=== PATIENT | female | born 1955 | race Caucasian/White ===

== ENCOUNTER → 2016-10-06 | Outpatient (CLI) | payer MEDICARE, OTHER, MEDICAID ==
[~2016-10-06] MED LIST: ALBU18HF INH; ALEN70TA5 PO; CANA300T PO; CEFU500T PO; CLOP75TA22 PO; DIPH25CA61 PO; DULA1.5P SC; EZET10TA3 PO; FENO145T13 PO; GABA600T PO; GABA600T2 PO; INSU100I13 SC; LISI5TAB7 PO; MORP15TA PO; OMEG1CAP12 PO; OMEP40CA6 PO; OXYC-229 PO; SITA100T PO; SULF1TAB24 PO; TRIA15CR2 TP; tylenol pm PO
== END | disposition home or self-care (01) ==
LOC: CFH 15:03
PROVIDERS: ATTEND Physician Assistant Surgical
DX: M19.011 Primary osteoarthritis, right shoulder (principal); M75.101 Unspecified rotator cuff tear or rupture of right shoulder, not specified as traumatic

== ENCOUNTER → 2016-10-24 | Outpatient (CLI) | payer MEDICARE, OTHER, MEDICAID | END | disposition home or self-care (01) | LOC: CFH 10:51 | PROVIDERS: ATTEND Physical Medicine & Rehabilitation | DX: M48.07 Spinal stenosis, lumbosacral region (principal); M43.27 Fusion of spine, lumbosacral region; M51.36 Other intervertebral disc degeneration, lumbar region; M25.78 Osteophyte, vertebrae; M54.16 Radiculopathy, lumbar region; G89.29 Other chronic pain; Z98.890 Other specified postprocedural states; Z98.1 Arthrodesis status | CPT/HCPCS: 72110; 72148 ==

== ENCOUNTER → 2016-12-24 | Outpatient (CLI) | payer MEDICARE, OTHER, MEDICAID ==
[~2016-12-24] MED LIST changes: -OMEG1CAP12 PO; +OMEG1CAP23 PO
== END | disposition home or self-care (01) ==
LOC: PETCFH 10:11
PROVIDERS: ATTEND Nurse Practitioner Family
DX: R91.1 Solitary pulmonary nodule (principal); I25.10 Atherosclerotic heart disease of native coronary artery without angina pectoris; D73.89 Other diseases of spleen; Z90.49 Acquired absence of other specified parts of digestive tract
CPT/HCPCS: 78815; A9552

== ENCOUNTER → 2016-12-24 | Outpatient (CLI) | payer MEDICARE, OTHER, MEDICAID | END | disposition home or self-care (01) | LOC: CFH 10:15 | PROVIDERS: ATTEND Nurse Practitioner Family | DX: J44.9 Chronic obstructive pulmonary disease, unspecified (principal) | CPT/HCPCS: 71020 ==

== ENCOUNTER → 2017-01-23 | Outpatient (CLI) | payer MEDICARE, OTHER, MEDICAID ==
[~2017-01-23] MED LIST changes: +ALBUTEROL PO; +BACL20TA PO; -CLOP75TA22 PO; +CLOP75TA52 PO; +EZET10TA18 PO; -EZET10TA3 PO; +FENO160T PO; -OXYC-229 PO; +OXYC-307 PO
[2017-01-23 12:12] LABS: HEMATOCRIT 41.3 % (34.6-47.8); HEMOGLOBIN 13.5 g/dL (11.7-16.4); WHITE BLOOD COUNT 9.4 x10^3/uL (3.4-10)
[2017-01-23 12:24] LABS: BLOOD UREA NITROGEN 23 mg/dL (7-18)
[2017-01-23 12:27] LABS: ASPARTATE AMINO TRANSFERASE 18 U/L (15-37)
== END | disposition home or self-care (01) ==
LOC: STAR 10:57
PROVIDERS: ATTEND Thoracic Surgery (Cardiothoracic Vascular Surgery)
DX: Z01.818 Encounter for other preprocedural examination (principal); J45.909 Unspecified asthma, uncomplicated; E11.9 Type 2 diabetes mellitus without complications; I10 Essential (primary) hypertension; M81.0 Age-related osteoporosis without current pathological fracture
CPT/HCPCS: 36415; 80053; 85025

== ENCOUNTER → 2017-03-18 | Outpatient (CLI) | payer MEDICARE, OTHER, MEDICAID ==
[~2017-03-18] MED LIST changes: +OXYC5CAP2 PO
== END | disposition home or self-care (01) ==
LOC: LAB 11:10
PROVIDERS: ATTEND Internal Medicine
DX: E11.8 Type 2 diabetes mellitus with unspecified complications (principal); Z79.4 Long term (current) use of insulin
CPT/HCPCS: 82043

== ENCOUNTER 2017-04-13 11:25 | Day surgery (SDC) | payer MEDICARE, OTHER, MEDICAID ==
[2017-04-10 11:47] LABS: BLOOD UREA NITROGEN 22 mg/dL (7-18)
[2017-04-10 11:50] LABS: HEMATOCRIT 43.8 % (34.6-47.8); HEMOGLOBIN 14.2 g/dL (11.7-16.4); WHITE BLOOD COUNT 10.3 x10^3/uL (3.4-10)
[~2017-04-13] VITALS: Ht 154.9 cm; Wt 86.0 kg
[2017-04-13 12:07] VITALS: BP 152/82
[2017-04-13] MEDS ORDERED: SODIUM CHLORIDE 0.9% 1,000 ML IV SCH (12:10)
[2017-04-13] MEDS ORDERED: VISIPAQUE 270 MG/ML, 150ML BOTTLE ONE (13:30)
[2017-04-13] MEDS ORDERED: NALOXONE 1 MG/ML, 2ML ONE (15:36)
[2017-04-13] MEDS ORDERED: HEPARIN 1,000 UNITS/ML, 10ML ONE (15:36)
[2017-04-13] MEDS ORDERED: FENTANYL PF 100 MCG/2ML ONE ×2 (15:36)
[2017-04-13] MEDS ORDERED: FLUMAZENIL 0.1 MG/1 ML, 5ML ONE (15:36)
[2017-04-13] MEDS ORDERED: PROTAMINE SULFATE 10 MG/ML, 25ML ONE (15:36)
[2017-04-13] MEDS ORDERED: MIDAZOLAM 1 MG/ML, 5ML ONE (15:36)
[2017-04-13] MEDS ORDERED: NITROGLYCERIN 5 MG/ML, 10ML ONE (15:36)
[2017-04-13] MEDS ORDERED: LIDOCAINE 2%, 20ML ONE (15:44)
[2017-04-13] MEDS ORDERED: CLOPIDOGREL 75 MG TABLET ONE (17:35)
[2017-04-13] MEDS: CLOPIDOGREL 75 MG TABLET PO ONE ×3 (17:40→18:05)
[2017-04-13] MEDS ORDERED: HYDROcodone/APAP 5/325 TABLET ONE (18:13)
[2017-04-13] MEDS ORDERED: HYDROcodone/APAP 5/325 TABLET PO ONE (18:30)
== END 2017-04-13 19:05 | disposition home or self-care (01) ==
LOC: OUT 11:25
PROVIDERS: ATTEND Surgery
DX: I70.213 Atherosclerosis of native arteries of extremities with intermittent claudication, bilateral legs (principal); I10 Essential (primary) hypertension; E11.9 Type 2 diabetes mellitus without complications; E78.5 Hyperlipidemia, unspecified; F17.210 Nicotine dependence, cigarettes, uncomplicated; Z88.8 Allergy status to other drugs, medicaments and biological substances
CPT/HCPCS: 36415; 37220; 75630; 80048; 82962; 85025; 99156; 99157; C1760; C1769; C1894; C2623; J1644; J2250; J3010; J3490; J7030; Q9966; J2720; J2310

== ENCOUNTER → 2017-10-30 | Outpatient (CLI) | payer MEDICARE, MEDICAID, OTHER ==
[~2017-10-30] MED LIST changes: +ACET-458 PO; -FENO145T13 PO; +FENO145T30 PO
== END | disposition home or self-care (01) ==
LOC: CFH 10:29
PROVIDERS: ATTEND Nurse Practitioner
DX: C34.90 Malignant neoplasm of unspecified part of unspecified bronchus or lung (principal); R91.1 Solitary pulmonary nodule; M47.894 Other spondylosis, thoracic region
CPT/HCPCS: 71250

== ENCOUNTER → 2017-11-12 | Outpatient (CLI) | payer MEDICARE, MEDICAID, OTHER | END | disposition home or self-care (01) | LOC: PETCFH 07:36 | PROVIDERS: ATTEND Nurse Practitioner | DX: J84.10 Pulmonary fibrosis, unspecified (principal); R91.8 Other nonspecific abnormal finding of lung field | CPT/HCPCS: 78815; A9552 ==

== ENCOUNTER → 2017-12-08 | Outpatient (CLI) | payer MEDICARE, MEDICAID, OTHER ==
[2017-12-08 11:18] LABS: BASOPHILS % (AUTO) 1 % (0-1); EOSINOPHILS # (AUTO) 0.17 x10^3/uL (0-0.4); EOSINOPHILS % (AUTO) 2 % (1-7); LYMPHOCYTES # (AUTO) 3.59 x10^3/uL (1-3.4); LYMPHOCYTES % (AUTO) 37 % (22-44); MD NO; MEAN CORPUSCULAR HEMOGLOBIN 29.1 pg (27.0-34.8); MEAN CORPUSCULAR HGB CONC 32.8 g/dL (32.4-35.8); MEAN CORPUSCULAR VOLUME 88.8 fL (80-100); MEAN PLATELET VOLUME 9.6 fL (7.4-10.4); MONOCYTES # (AUTO) 0.35 x10^3/uL (0.2-0.8); MONOCYTES % (AUTO) 4 % (2-9); NEUTROPHILS # (AUTO) 5.56 x10^3/uL (1.8-6.8); NEUTROPHILS % (AUTO) 57 % (42-75); PLATELET COUNT 262 x10^3/uL (130-400); RED BLOOD COUNT 4.73 x10^6/uL (3.82-5.3)
[2017-12-08 11:27] LABS: ALANINE AMINOTRANSFERASE 23 U/L (12-78); ALBUMIN 3.7 g/dL (3.4-5.0); ANION GAP 7 mmol/L (5-15); CALCIUM 9.5 mg/dL (8.5-10.1); CHLORIDE 103 mmol/L (98-107); CREATININE 1.12 mg/dL (0.55-1.02)
[2017-12-08 11:29] LABS: ALKALINE PHOSPHATASE 60 U/L (45-117); BILIRUBIN,TOTAL 0.2 mg/dL (0.2-1.0); TOTAL PROTEIN 8.1 g/dL (6.4-8.2)
== END | disposition home or self-care (01) ==
LOC: STAR 10:13
PROVIDERS: ATTEND Thoracic Surgery (Cardiothoracic Vascular Surgery)
DX: Z01.818 Encounter for other preprocedural examination (principal); R94.31 Abnormal electrocardiogram [ECG] [EKG]
CPT/HCPCS: 36415; 80053; 85025; 93005

== ENCOUNTER → 2017-12-09 | Outpatient (CLI) | payer MEDICARE, MEDICAID, OTHER | END | disposition home or self-care (01) | LOC: CVU 12:19 | PROVIDERS: ATTEND Surgery | DX: I65.23 Occlusion and stenosis of bilateral carotid arteries (principal); I10 Essential (primary) hypertension; I73.9 Peripheral vascular disease, unspecified; E11.9 Type 2 diabetes mellitus without complications; E78.5 Hyperlipidemia, unspecified; Z72.0 Tobacco use | CPT/HCPCS: 93880; 93922; 93925 ==

== ENCOUNTER 2017-12-16 10:45 | Inpatient (IN) | payer MEDICARE, OTHER, MEDICAID ==
[~2017-12-16] VITALS: Ht 154.9 cm; Wt 89.4 kg
[~2017-12-16 10:45] MED LIST changes: +BUPIVACAINE/PF-EPI 0.5% 1:200K ONE
[2017-12-16] MEDS ORDERED: LACTATED RINGERS 1,000 ML IV SCH ×2 (11:29→14:07)
[2017-12-16 12:02] VITALS: BP 137/81
[2017-12-16] MEDS ORDERED: INSU100I34 SQ-INSULIN (12:15)
[2017-12-16] MEDS ORDERED: EVOL140P SQ (12:15)
[2017-12-16] MEDS ORDERED: FENTANYL PF 100 MCG/2ML ONE ×4 (12:23→15:12)
[2017-12-16] MEDS ORDERED: PROPOFOL 10 MG/ML, 20ML ONE (12:59)
[2017-12-16] MEDS ORDERED: SUCCINYLCHOLINE 20 MG/ML, 10ML ONE (12:59)
[2017-12-16] MEDS ORDERED: ONDANSETRON 2MG/ML, 2ML ONE (12:59)
[2017-12-16] MEDS ORDERED: CEFAZOLIN 1,000 MG ONE (12:59)
[2017-12-16] MEDS ORDERED: ROCURONIUM 10 MG/ML,10ML ONE (12:59)
[2017-12-16] MEDS ORDERED: HYDROmorphone 2 MG/ML, 1ML ONE (14:19)
[2017-12-16] MEDS: HYDROmorphone 1 MG/ML, 1ML IV PRN ×4 (14:20→15:43)
[2017-12-16] MEDS ORDERED: LORazepam 2 MG/ML, 1ML ONE (14:22)
[2017-12-16] MEDS ORDERED: ACETAMINOPHEN 650 MG SUPP PR PRN (14:30)
[2017-12-16] MEDS ORDERED: morphine SULFATE 10 MG/ML, 1ML IVPush PRN (14:30)
[2017-12-16] MEDS ORDERED: ENALAPRILAT 1.25 MG/ML, 2ML IVPush PRN (14:30)
[2017-12-16] MEDS: FAMOTIDINE 20 MG/2 ML IVPush SCH (14:30)
[2017-12-16] MEDS ORDERED: LORazepam 0.5MG TABLET PO PRN (14:30)
[2017-12-16] MEDS ORDERED: hydrALAzine 20 MG/ML, 1ML IVPush PRN (14:30)
[2017-12-16] MEDS ORDERED: ONDANSETRON 2MG/ML, 2ML IVPush PRN (14:30)
[2017-12-16] MEDS ORDERED: ACETAMINOPHEN 325 MG TABLET PO PRN ×2 (14:30→15:30)
[2017-12-16] MEDS ORDERED: OXYcodone IR 5MG TABLET PO PRN (14:30)
[2017-12-16] MEDS ORDERED: LORazepam 2 MG/ML, 1ML IVPush PRN ×2 (14:30→15:30)
[2017-12-16] MEDS: FENTANYL PF 100 MCG/2ML IV PRN ×2 (15:22→15:34)
[2017-12-16] MEDS ORDERED: KETOROLAC 30 MG/1 ML IV PRN (15:30)
[2017-12-16] MEDS ORDERED: LABETALOL 5MG/ML, 20ML IV PRN (15:30)
[2017-12-16] MEDS ORDERED: ALBUTEROL SULFATE 2.5 MG/3 ML NPPB PRN (15:30)
[2017-12-16] MEDS ORDERED: ONDANSETRON 2MG/ML, 2ML IV PRN (15:30)
[2017-12-16] MEDS ORDERED: FENTANYL PF 100 MCG/2ML IV PRN (15:30)
[2017-12-16] MEDS ORDERED: HYDROmorphone 1 MG/ML, 1ML IV PRN (15:30)
[2017-12-16] MEDS ORDERED: hydrALAzine 20 MG/ML, 1ML IV PRN (15:30)
[2017-12-16] MEDS ORDERED: EPHEDRINE 50 MG/ML, 1ML IVPush PRN (15:30)
[2017-12-16] MEDS ORDERED: HALOPERIDOL 5 MG/ML IV PRN (15:30)
[2017-12-16] MEDS ORDERED: MEPERIDINE/PF 25MG/0.5ML IVPush PRN (15:30)
[2017-12-16] MEDS ORDERED: PROMETHAZINE 25 MG/ML, 1ML IV PRN (15:30)
[2017-12-16] MEDS ORDERED: ALBUTEROL/IPRATROPIUM 2.5MG/0.5MG, 3 ML NPPB PRN (15:30)
[2017-12-16] MEDS ORDERED: ACETAMINOPHEN 650 MG/20.3 ML UDC ONE (15:53)
[2017-12-16] MEDS ORDERED: KETOROLAC 30 MG/1 ML ONE (15:54)
[2017-12-16] MEDS ORDERED: ACETAMINOPHEN 325 MG TABLET ONE (15:54)
[2017-12-16] MEDS: GABAPENTIN 300 MG CAPSULE PO SCH ×2 (16:00→20:41)
[2017-12-16] MEDS: BACLOFEN 10 MG TABLET PO SCH ×2 (16:00→20:41)
[2017-12-16] MEDS ORDERED: INSULIN SINGLE DOSE, ER SQ-INSULIN ONE (16:25)
[2017-12-16] MEDS: INSULIN REGULAR 100 UNITS/ML, 3ML VIAL SQ-INSULIN SCH ×2 (16:47→21:00)
[2017-12-16] MEDS ORDERED: ALBUTEROL SULFATE 2.5MG/0.5ML NPPB PRN (17:30)
[2017-12-16 19:41] VITALS: BP 126/71
[2017-12-16] MEDS: DIPHENHYDRAMINE 25 MG CAPSULE PO SCH (20:41)
[2017-12-16] MEDS: TRIAMCINOLONE CRM 0.025%, 15GM TP SCH (20:42)
[2017-12-16] MEDS ORDERED: EZETIMIBE 10 MG TABLET PO SCH (21:00)
[2017-12-16] MEDS ORDERED: INSULIN GLARGINE 100 UNITS/ML, PEN SQ-INSULIN SCH (21:00)
[2017-12-16 23:54] VITALS: BP 140/68
[2017-12-17] MEDS: LACTATED RINGERS 500 ML IVBOLUS ONE ×2 (02:25→02:30)
[2017-12-17] MEDS: FAMOTIDINE 20 MG/2 ML IVPush SCH (02:25)
[2017-12-17] MEDS ORDERED: HYDROmorphone 2 MG/ML, 1ML ONE (02:47)
[2017-12-17] MEDS: HYDROmorphone 1 MG/ML, 1ML IV PRN (02:51)
[2017-12-17 04:25] VITALS: BP 109/71
[2017-12-17 05:18] LABS: BASOPHILS # (AUTO) 0.09 x10^3/uL (0-0.1); BASOPHILS % (AUTO) 1 % (0-1); EOSINOPHILS # (AUTO) 0.12 x10^3/uL (0-0.4); EOSINOPHILS % (AUTO) 1 % (1-7); LYMPHOCYTES # (AUTO) 4.16 x10^3/uL (1-3.4); LYMPHOCYTES % (AUTO) 32 % (22-44); MD NO; MEAN CORPUSCULAR HGB CONC 32.3 g/dL (32.4-35.8); MEAN CORPUSCULAR VOLUME 89.7 fL (80-100); MONOCYTES # (AUTO) 0.59 x10^3/uL (0.2-0.8); MONOCYTES % (AUTO) 5 % (2-9); NEUTROPHILS % (AUTO) 62 % (42-75); PLATELET COUNT 224 x10^3/uL (130-400); RED BLOOD COUNT 4.28 x10^6/uL (3.82-5.3); RED CELL DISTRIBUTION WIDTH 14.5 % (9.6-15.2)
[2017-12-17 05:32] LABS: ANION GAP 8 mmol/L (5-15); CALCIUM 8.8 mg/dL (8.5-10.1); CHLORIDE 105 mmol/L (98-107); CREATININE 1.08 mg/dL (0.55-1.02)
[2017-12-17] MEDS: INSULIN REGULAR 100 UNITS/ML, 3ML VIAL SQ-INSULIN SCH (07:00)
[2017-12-17 08:13] VITALS: BP 134/78
[2017-12-17 08:16] VITALS: BP 138/79
[2017-12-17] MEDS ORDERED: FENOFIBRATE 145 MG TABLET PO SCH (09:00)
[2017-12-17] MEDS: TRIAMCINOLONE CRM 0.025%, 15GM TP SCH (09:00)
[2017-12-17] MEDS ORDERED: LISINOPRIL 10 MG TABLET PO SCH (09:00)
[2017-12-17] MEDS: DIPHENHYDRAMINE 25 MG CAPSULE PO SCH (09:00)
[2017-12-17] MEDS ORDERED: TEMPLATE NON-FORMULARY MED. (Canagliflozin (Invokana) 300 MG) HOMEMEDPO SCH (09:00)
[2017-12-17] MEDS ORDERED: ENOXAPARIN 40 MG/0.4 ML SQ SCH (09:00)
[2017-12-17] MEDS: BACLOFEN 10 MG TABLET PO SCH (09:53)
[2017-12-17] MEDS: GABAPENTIN 300 MG CAPSULE PO SCH (09:53)
[2017-12-17 11:17] VITALS: BP 125/76
== END 2017-12-17 12:01 | disposition home or self-care (01) | DRG 165 ==
LOC: ORIP 10:45 → 4NOR 17:08 → DCLOUNGE 12-17 11:52
PROVIDERS: ADMIT Thoracic Surgery (Cardiothoracic Vascular Surgery); ATTEND Thoracic Surgery (Cardiothoracic Vascular Surgery)
PROC: 0WP8X0Z Removal of Drainage Device from Chest Wall, External Approach (ICD-10-PCS; 2017-12-16)
PROC: 0BBC4ZZ Excision of Right Upper Lung Lobe, Percutaneous Endoscopic Approach (ICD-10-PCS; principal; 2017-12-16 13:00)
DX: C34.91 Malignant neoplasm of unspecified part of right bronchus or lung (principal); I10 Essential (primary) hypertension; E78.5 Hyperlipidemia, unspecified; J44.9 Chronic obstructive pulmonary disease, unspecified; K21.9 Gastro-esophageal reflux disease without esophagitis; E11.51 Type 2 diabetes mellitus with diabetic peripheral angiopathy without gangrene; Z88.6 Allergy status to analgesic agent; Z88.0 Allergy status to penicillin; Z88.8 Allergy status to other drugs, medicaments and biological substances
CPT/HCPCS: 36415; 71045; 80048; 82962; 85025; 86850; 86900; 88307; 88309; C1729; J0690; J1170; J1650; J1815; J1885; J2405; J2704; J3010; J7120; J0330; Q0163; S0028

== ENCOUNTER → 2018-04-19 | Outpatient (CLI) | payer MEDICARE, OTHER, MEDICAID ==
[~2018-04-19] MED LIST changes: -BUPIVACAINE/PF-EPI 0.5% 1:200K ONE; +EVOL140P SQ; +GADOBUTROL 10 MMOL/10 ML PFS ONE; +INSU100I34 SQ-INSULIN
== END | disposition home or self-care (01) ==
LOC: CFH 14:02
PROVIDERS: ATTEND Physical Medicine & Rehabilitation
DX: R07.89 Other chest pain (principal); G89.3 Neoplasm related pain (acute) (chronic); E11.9 Type 2 diabetes mellitus without complications; M79.2 Neuralgia and neuritis, unspecified; Z90.2 Acquired absence of lung [part of]; Z85.118 Personal history of other malignant neoplasm of bronchus and lung; Z85.3 Personal history of malignant neoplasm of breast
CPT/HCPCS: 71552; 82565; A9585

== ENCOUNTER → 2018-05-28 | Outpatient (CLI) | payer MEDICARE, OTHER, MEDICAID ==
[~2018-05-28] MED LIST changes: -GADOBUTROL 10 MMOL/10 ML PFS ONE
== END | disposition home or self-care (01) ==
LOC: CFH 10:36
PROVIDERS: ATTEND Nurse Practitioner
DX: L92.8 Other granulomatous disorders of the skin and subcutaneous tissue (principal); J95.89 Other postprocedural complications and disorders of respiratory system, not elsewhere classified; I25.10 Atherosclerotic heart disease of native coronary artery without angina pectoris; J98.4 Other disorders of lung; C34.91 Malignant neoplasm of unspecified part of right bronchus or lung; M25.78 Osteophyte, vertebrae; Z90.49 Acquired absence of other specified parts of digestive tract
CPT/HCPCS: 71250

== ENCOUNTER → 2018-06-15 | Outpatient (CLI) | payer MEDICARE, OTHER | END | disposition home or self-care (01) | LOC: CFH 14:31 | PROVIDERS: ATTEND Orthopaedic Surgery | DX: M19.071 Primary osteoarthritis, right ankle and foot (principal); R60.0 Localized edema; G89.29 Other chronic pain ==

== ENCOUNTER → 2018-07-14 | Outpatient (CLI) | payer MEDICARE, OTHER, MEDICAID ==
[~2018-07-14] MED LIST changes: -ALEN70TA5 PO; +ALEN70TA6 PO; -GABA600T2 PO; +GABA600T7 PO
== END | disposition home or self-care (01) ==
LOC: CVU 09:21
PROVIDERS: ATTEND Surgery
DX: I70.203 Unspecified atherosclerosis of native arteries of extremities, bilateral legs (principal); I74.9 Embolism and thrombosis of unspecified artery; I77.1 Stricture of artery; T82.858A Stenosis of other vascular prosthetic devices, implants and grafts, initial encounter; I10 Essential (primary) hypertension; E11.9 Type 2 diabetes mellitus without complications; Z72.0 Tobacco use
CPT/HCPCS: 93922; 93925; 93979

== ENCOUNTER → 2018-08-04 | Outpatient (CLI) | payer MEDICARE, OTHER, MEDICAID ==
[~2018-08-04] MED LIST changes: +REGADENOSON 0.4 MG/5 ML SYRINGE ONE
== END | disposition home or self-care (01) ==
LOC: CFH 12:59
PROVIDERS: ATTEND Internal Medicine Cardiovascular Disease
DX: I08.1 Rheumatic disorders of both mitral and tricuspid valves (principal); I10 Essential (primary) hypertension; F17.200 Nicotine dependence, unspecified, uncomplicated; Z86.73 Personal history of transient ischemic attack (TIA), and cerebral infarction without residual deficits; Z85.118 Personal history of other malignant neoplasm of bronchus and lung
CPT/HCPCS: 78452; 93017; 93306; A9502; J2785

== ENCOUNTER 2018-08-20 09:03 | Day surgery (SDC) | payer MEDICARE, OTHER, MEDICAID ==
[~2018-08-20] VITALS: Ht 154.9 cm; Wt 81.4 kg
[~2018-08-20 09:03] MED LIST changes: -REGADENOSON 0.4 MG/5 ML SYRINGE ONE
[2018-08-20 09:34] VITALS: BP 165/79
[2018-08-20] MEDS ORDERED: DAPA5TAB PO (09:56)
[2018-08-20 10:02] LABS: BASOPHILS # (AUTO) 0.12 x10^3/uL (0-0.1); BASOPHILS % (AUTO) 1 % (0-1); EOSINOPHILS # (AUTO) 0.09 x10^3/uL (0-0.4); EOSINOPHILS % (AUTO) 1 % (1-7); LYMPHOCYTES # (AUTO) 3.35 x10^3/uL (1-3.4); LYMPHOCYTES % (AUTO) 35 % (22-44); MD NO; MEAN CORPUSCULAR HEMOGLOBIN 28.3 pg (27.0-34.8); MEAN CORPUSCULAR HGB CONC 32.5 g/dL (32.4-35.8); MEAN PLATELET VOLUME 9.4 fL (7.4-10.4); MONOCYTES # (AUTO) 0.41 x10^3/uL (0.2-0.8); MONOCYTES % (AUTO) 4 % (2-9); NEUTROPHILS # (AUTO) 5.61 x10^3/uL (1.8-6.8); NEUTROPHILS % (AUTO) 59 % (42-75); PLATELET COUNT 256 x10^3/uL (130-400); RED BLOOD COUNT 4.68 x10^6/uL (3.82-5.3); RED CELL DISTRIBUTION WIDTH 14.3 % (9.6-15.2)
[2018-08-20] MEDS ORDERED: VERAPAMIL 2.5 MG/ML, 2ML ONE (10:10)
[2018-08-20] MEDS ORDERED: NITROGLYCERIN 5 MG/ML, 10ML ONE (10:10)
[2018-08-20] MEDS ORDERED: FENTANYL PF 250 MCG/5ML ONE (10:10)
[2018-08-20] MEDS ORDERED: MIDAZOLAM 1 MG/ML, 5ML ONE ×2 (10:10→11:39)
[2018-08-20] MEDS ORDERED: LIDOCAINE-MPF 1%, 5ML ONE (10:10)
[2018-08-20] MEDS ORDERED: OXYC-307 PO (10:17)
[2018-08-20] MEDS ORDERED: BUPIVACAINE 0.25% ONE (11:13)
[2018-08-20] MEDS ORDERED: OXYcodone/APAP 10/325MG TABLET PO PRN (12:00)
== END 2018-08-20 16:16 | disposition home or self-care (01) ==
LOC: CACL 09:03
PROVIDERS: ATTEND Internal Medicine Cardiovascular Disease
DX: I25.10 Atherosclerotic heart disease of native coronary artery without angina pectoris (principal); F17.210 Nicotine dependence, cigarettes, uncomplicated; E78.2 Mixed hyperlipidemia; I65.22 Occlusion and stenosis of left carotid artery; E11.65 Type 2 diabetes mellitus with hyperglycemia; Z90.710 Acquired absence of both cervix and uterus; Z98.890 Other specified postprocedural states; Z90.49 Acquired absence of other specified parts of digestive tract; Z85.118 Personal history of other malignant neoplasm of bronchus and lung; Z88.6 Allergy status to analgesic agent; Z88.1 Allergy status to other antibiotic agents; Z88.0 Allergy status to penicillin; Z88.8 Allergy status to other drugs, medicaments and biological substances
CPT/HCPCS: 36415; 85025; 93458; 99156; C1769; C1894; J2250; J3010; J3490; Q9967

== ENCOUNTER → 2018-10-08 | Outpatient (CLI) | payer MEDICARE, OTHER, MEDICAID ==
[~2018-10-08] MED LIST changes: +DAPA5TAB PO
== END | disposition home or self-care (01) ==
LOC: STAR 10:42
PROVIDERS: ATTEND Orthopaedic Surgery
DX: Z01.818 Encounter for other preprocedural examination (principal); M19.041 Primary osteoarthritis, right hand
CPT/HCPCS: 36415; 80053; 93005

== ENCOUNTER 2018-10-19 05:35 | Day surgery (SDC) | payer MEDICARE, OTHER, MEDICAID ==
[2018-10-08 12:24] VITALS: BP 131/77
[2018-10-08 12:34] LABS: CHLORIDE 107 mmol/L (98-107)
[2018-10-08 12:41] LABS: ALANINE AMINOTRANSFERASE 17 U/L (12-78); ALBUMIN 4.1 g/dL (3.4-5.0); ALKALINE PHOSPHATASE 62 U/L (45-117); ANION GAP 8 mmol/L (5-15); BILIRUBIN,TOTAL 0.2 mg/dL (0.2-1.0); CALCIUM 9.8 mg/dL (8.5-10.1); CREATININE 0.88 mg/dL (0.55-1.02); TOTAL PROTEIN 8.3 g/dL (6.4-8.2)
[~2018-10-19] VITALS: Ht 154.9 cm; Wt 82.4 kg
[2018-10-19] MEDS ORDERED: LACTATED RINGERS 1,000 ML IV SCH (06:05)
[2018-10-19 06:09] VITALS: BP 131/77
[2018-10-19] MEDS ORDERED: MIDAZOLAM 1 MG/ML, 2ML ONE (06:39)
[2018-10-19] MEDS ORDERED: FENTANYL PF 100 MCG/2ML ONE ×2 (06:39→11:00)
[2018-10-19] MEDS ORDERED: ACETAMINOPHEN 500 MG TABLET ONE ×3 (07:07)
[2018-10-19] MEDS ORDERED: GABAPENTIN 300 MG CAPSULE ONE ×2 (07:07)
[2018-10-19] MEDS ORDERED: DEXAMETHASONE 4 MG/ML, 1ML ONE (07:10)
[2018-10-19] MEDS ORDERED: ONDANSETRON 2MG/ML, 2ML ONE ×2 (07:10→12:04)
[2018-10-19] MEDS ORDERED: CEFAZOLIN 1,000 MG ONE (07:10)
[2018-10-19] MEDS ORDERED: PROPOFOL 10 MG/ML, 20ML ONE (07:10)
[2018-10-19] MEDS ORDERED: ROCURONIUM 10MG/ML,5ML ONE (07:10)
[2018-10-19] MEDS ORDERED: FENTANYL PF 250 MCG/5ML ONE (07:23)
[2018-10-19] MEDS ORDERED: EPINEPHRINE 1 MG/ML, 1ML ONE (07:23)
[2018-10-19] MEDS ORDERED: ALBUTEROL SULFATE 2.5 MG/3 ML NPPB PRN (07:30)
[2018-10-19] MEDS ORDERED: MEPERIDINE/PF 25MG/0.5ML IVPush PRN (07:30)
[2018-10-19] MEDS ORDERED: ACETAMINOPHEN 325 MG TABLET PO PRN (07:30)
[2018-10-19] MEDS ORDERED: hydrALAzine 20 MG/ML, 1ML IV PRN (07:30)
[2018-10-19] MEDS ORDERED: LABETALOL 5MG/ML, 20ML IV PRN (07:30)
[2018-10-19] MEDS ORDERED: DIAZEPAM 5 MG/ML, 2ML IVPush PRN (07:30)
[2018-10-19] MEDS ORDERED: PROMETHAZINE 25 MG/ML, 1ML IV PRN (07:30)
[2018-10-19] MEDS: FENTANYL PF 100 MCG/2ML IV PRN ×3 (08:48→09:18)
[2018-10-19] MEDS: HYDROmorphone 2 MG/ML, 1ML IVPush PRN ×6 (08:52→09:55)
[2018-10-19] MEDS ORDERED: hydrALAzine 20 MG/ML, 1ML ONE (08:58)
[2018-10-19] MEDS ORDERED: HYDROmorphone 2 MG/ML, 1ML ONE ×2 (09:52→11:00)
[2018-10-19] MEDS ORDERED: OXYcodone/APAP 5/325MG TABLET ONE (12:04)
== END 2018-10-19 13:30 | disposition home or self-care (01) ==
LOC: OUT 05:35
PROVIDERS: ATTEND Orthopaedic Surgery
DX: S43.431A Superior glenoid labrum lesion of right shoulder, initial encounter (principal); M75.111 Incomplete rotator cuff tear or rupture of right shoulder, not specified as traumatic; M65.4 Radial styloid tenosynovitis [de Quervain]; M65.811 Other synovitis and tenosynovitis, right shoulder; M75.41 Impingement syndrome of right shoulder; M75.51 Bursitis of right shoulder; M19.011 Primary osteoarthritis, right shoulder; E11.9 Type 2 diabetes mellitus without complications; I10 Essential (primary) hypertension; I25.10 Atherosclerotic heart disease of native coronary artery without angina pectoris; E78.5 Hyperlipidemia, unspecified; J45.909 Unspecified asthma, uncomplicated; X58.XXXA Exposure to other specified factors, initial encounter; Y93.89 Activity, other specified; Y92.89 Other specified places as the place of occurrence of the external cause; Y99.8 Other external cause status; Z90.710 Acquired absence of both cervix and uterus; Z79.84 Long term (current) use of oral hypoglycemic drugs; Z90.49 Acquired absence of other specified parts of digestive tract; Z98.890 Other specified postprocedural states; Z88.8 Allergy status to other drugs, medicaments and biological substances; Z88.6 Allergy status to analgesic agent; Z88.1 Allergy status to other antibiotic agents; Z88.5 Allergy status to narcotic agent; Z88.0 Allergy status to penicillin
CPT/HCPCS: 25000; 29823; 29824; 29826; 82962; J0171; J0360; J0690; J1100; J1170; J2250; J2405; J2704; J3010; J7120; 36415; 80053

== ENCOUNTER 2018-12-09 09:29 | Outpatient (CLI) | payer MEDICARE, OTHER, MEDICAID | END 2018-12-09 23:59 | disposition home or self-care (01) | LOC: CFH 09:29 | PROVIDERS: ATTEND Nurse Practitioner | DX: Z12.2 Encounter for screening for malignant neoplasm of respiratory organs (principal); I25.10 Atherosclerotic heart disease of native coronary artery without angina pectoris; F17.210 Nicotine dependence, cigarettes, uncomplicated; Z98.890 Other specified postprocedural states | CPT/HCPCS: G0297 ==

== ENCOUNTER 2019-03-12 23:05 | Inpatient (IN) | payer MEDICARE, OTHER, MEDICAID ==
[~2019-03-12] VITALS: Ht 154.9 cm; Wt 85.1 kg
[~2019-03-12 23:05] MED LIST changes: -EZET10TA18 PO; +EZET10TA70 PO
[2019-03-13 00:42] LABS: BASOPHILS # (AUTO) 0.07 x10^3/uL (0-0.1); BASOPHILS % (AUTO) 1 % (0-1); EOSINOPHILS # (AUTO) 0.21 x10^3/uL (0-0.4); EOSINOPHILS % (AUTO) 2 % (1-7); LYMPHOCYTES # (AUTO) 4.11 x10^3/uL (1-3.4); LYMPHOCYTES % (AUTO) 41 % (22-44); MD NO; MEAN CORPUSCULAR HEMOGLOBIN 29.8 pg (27.0-34.8); MEAN CORPUSCULAR HGB CONC 32.9 g/dL (32.4-35.8); MEAN CORPUSCULAR VOLUME 90.7 fL (80-100); MEAN PLATELET VOLUME 10.3 fL (7.4-10.4); MONOCYTES # (AUTO) 0.41 x10^3/uL (0.2-0.8); MONOCYTES % (AUTO) 4 % (2-9); NEUTROPHILS # (AUTO) 5.34 x10^3/uL (1.8-6.8); NEUTROPHILS % (AUTO) 53 % (42-75); PLATELET COUNT 290 x10^3/uL (130-400); RED BLOOD COUNT 4.39 x10^6/uL (3.82-5.3)
[2019-03-13 00:56] LABS: ALANINE AMINOTRANSFERASE 20 U/L (12-78); ALBUMIN 3.5 g/dL (3.4-5.0); ANION GAP 9 mmol/L (5-15); CHLORIDE 105 mmol/L (98-107); CREATININE 0.92 mg/dL (0.55-1.02)
[2019-03-13 00:59] LABS: ALKALINE PHOSPHATASE 95 U/L (45-117); BILIRUBIN,TOTAL 0.3 mg/dL (0.2-1.0)
[2019-03-13] MEDS ORDERED: SODIUM CHLORIDE 0.9% 1,000ML IVBOLUS ONE (02:00)
[2019-03-13] MEDS ORDERED: CEFTRIAXONE PMX 1GM/50ML 50 ML ONE (02:46)
[2019-03-13] MEDS ORDERED: VANCOMYCIN PER PHARMACY MC ONE (03:00)
[2019-03-13] MEDS ORDERED: CEFTRIAXONE PMX 1GM/50ML 50 ML IVPB ONE (03:00)
[2019-03-13] MEDS ORDERED: ACETAMINOPHEN 325 MG TABLET PO PRN (03:00)
[2019-03-13] MEDS ORDERED: VANCOMYCIN 1,600 MG in SODIUM CHLORIDE 0.9% 250 ML IV ONE (03:00)
[2019-03-13] MEDS ORDERED: ONDANSETRON 2MG/ML, 2ML IVPush PRN (03:00)
[2019-03-13 04:25] VITALS: BP 137/77
[2019-03-13] MEDS ORDERED: OMNIPAQUE 350 MG/ML, 100ML BOTTLE ONE (05:04)
[2019-03-13] MEDS: SODIUM CHLORIDE 0.9% 1,000 ML IV SCH ×3 (05:40→22:34)
[2019-03-13] MEDS: OXYcodone/APAP 5/325MG TABLET PO PRN ×4 (05:40→21:43)
[2019-03-13] MEDS: INSULIN LISPRO 100 UNITS/ML, PEN SQ-INSULIN SCH ×4 (07:00→21:45)
[2019-03-13] MEDS: CLOPIDOGREL 75 MG TABLET PO SCH (07:57)
[2019-03-13] MEDS: GABAPENTIN 300 MG CAPSULE PO SCH ×3 (07:57→21:42)
[2019-03-13 08:00] VITALS: BP 102/65
[2019-03-13] MEDS: FENOFIBRATE 145 MG TABLET PO SCH (08:00)
[2019-03-13 10:23] VITALS: BP 102/65
[2019-03-13] MEDS: CLINDAMYCIN PMX 600MG/50ML 50 ML IV SCH ×3 (10:27→22:33)
[2019-03-13] MEDS: ENOXAPARIN 40 MG/0.4 ML SQ SCH (10:37)
[2019-03-13] MEDS: NYSTATIN TOPICAL POWDER 15GM TP SCH ×2 (14:32→22:05)
[2019-03-13 15:10] VITALS: BP 125/70
[2019-03-13] MEDS ORDERED: ALBUTEROL SULFATE 2.5 MG/3 ML HHN PRN (16:30)
[2019-03-13] MEDS: BACLOFEN 10 MG TABLET PO SCH ×2 (16:44→21:41)
[2019-03-13 19:13] VITALS: BP 152/85
[2019-03-13] MEDS ORDERED: INSULIN GLARGINE 100 UNITS/ML, PEN SQ-INSULIN SCH (21:00)
[2019-03-13] MEDS: LISINOPRIL 10 MG TABLET PO SCH (21:42)
[2019-03-13] MEDS: BASAGLAR SQ SCH (22:05)
[2019-03-14 02:56] VITALS: BP 124/51
[2019-03-14] MEDS: CLINDAMYCIN PMX 600MG/50ML 50 ML IV SCH ×4 (04:36→22:25)
[2019-03-14 05:05] LABS: ANION GAP 8 mmol/L (5-15); BASOPHILS # (AUTO) 0.07 x10^3/uL (0-0.1); BASOPHILS % (AUTO) 1 % (0-1); CALCIUM 8.4 mg/dL (8.5-10.1); CHLORIDE 109 mmol/L (98-107); CREATININE 0.74 mg/dL (0.55-1.02); EOSINOPHILS # (AUTO) 0.13 x10^3/uL (0-0.4); EOSINOPHILS % (AUTO) 3 % (1-7); LYMPHOCYTES # (AUTO) 2.35 x10^3/uL (1-3.4); LYMPHOCYTES % (AUTO) 45 % (22-44); MD NO; MEAN CORPUSCULAR HEMOGLOBIN 29.5 pg (27.0-34.8); MEAN CORPUSCULAR HGB CONC 32.8 g/dL (32.4-35.8); MEAN CORPUSCULAR VOLUME 90.1 fL (80-100); MEAN PLATELET VOLUME 9.8 fL (7.4-10.4); MONOCYTES # (AUTO) 0.18 x10^3/uL (0.2-0.8); MONOCYTES % (AUTO) 3 % (2-9); NEUTROPHILS # (AUTO) 2.49 x10^3/uL (1.8-6.8); NEUTROPHILS % (AUTO) 48 % (42-75); PLATELET COUNT 215 x10^3/uL (130-400); RED BLOOD COUNT 3.94 x10^6/uL (3.82-5.3); RED CELL DISTRIBUTION WIDTH 14.2 % (9.6-15.2)
[2019-03-14] MEDS: BACLOFEN 10 MG TABLET PO SCH ×4 (06:00→21:54)
[2019-03-14 07:38] VITALS: BP 144/81
[2019-03-14] MEDS: ENOXAPARIN 40 MG/0.4 ML SQ SCH (08:51)
[2019-03-14] MEDS: GABAPENTIN 300 MG CAPSULE PO SCH ×3 (08:51→21:56)
[2019-03-14] MEDS: INSULIN LISPRO 100 UNITS/ML, PEN SQ-INSULIN SCH ×4 (08:51→21:00)
[2019-03-14] MEDS: CLOPIDOGREL 75 MG TABLET PO SCH (08:52)
[2019-03-14] MEDS: FENOFIBRATE 145 MG TABLET PO SCH (08:52)
[2019-03-14] MEDS: NYSTATIN TOPICAL POWDER 15GM TP SCH ×2 (08:52→21:58)
[2019-03-14] MEDS: SODIUM CHLORIDE 0.9% 1,000 ML IV SCH ×2 (08:53→16:31)
[2019-03-14] MEDS: (Dapagliflozin Propanediol (Farxiga) 5 MG) HOMEMEDPO SCH (08:53)
[2019-03-14] MEDS: OXYcodone/APAP 5/325MG TABLET PO PRN ×3 (09:03→21:54)
[2019-03-14] MEDS ORDERED: MORPHINE SULFATE 4 MG/ML, 1ML IVPush ONE (09:30)
[2019-03-14 14:30] VITALS: BP 121/62
[2019-03-14 19:52] VITALS: BP 155/75
[2019-03-14] MEDS: LISINOPRIL 10 MG TABLET PO SCH (21:55)
[2019-03-14] MEDS: BASAGLAR SQ SCH (21:57)
[2019-03-15] MEDS: SODIUM CHLORIDE 0.9% 1,000 ML IV SCH ×3 (01:32→21:25)
[2019-03-15 01:51] VITALS: BP 101/64
[2019-03-15] MEDS: CLINDAMYCIN PMX 600MG/50ML 50 ML IV SCH ×4 (04:29→23:27)
[2019-03-15] MEDS: BACLOFEN 10 MG TABLET PO SCH ×4 (06:00→21:00)
[2019-03-15 07:59] VITALS: BP 131/74
[2019-03-15] MEDS: INSULIN LISPRO 100 UNITS/ML, PEN SQ-INSULIN SCH ×4 (08:13→21:00)
[2019-03-15] MEDS: (Dapagliflozin Propanediol (Farxiga) 5 MG) HOMEMEDPO SCH (08:13)
[2019-03-15] MEDS: GABAPENTIN 300 MG CAPSULE PO SCH ×3 (08:14→22:10)
[2019-03-15] MEDS: CLOPIDOGREL 75 MG TABLET PO SCH (08:14)
[2019-03-15] MEDS: OXYcodone/APAP 5/325MG TABLET PO PRN ×3 (08:14→22:09)
[2019-03-15] MEDS: FENOFIBRATE 145 MG TABLET PO SCH (08:18)
[2019-03-15] MEDS: NYSTATIN TOPICAL POWDER 15GM TP SCH ×2 (09:00→22:13)
[2019-03-15] MEDS: ENOXAPARIN 40 MG/0.4 ML SQ SCH (10:33)
[2019-03-15] MEDS: ONDANSETRON 2MG/ML, 2ML IVPush PRN (10:33)
[2019-03-15 13:44] VITALS: BP 127/60
[2019-03-15 19:10] VITALS: BP 135/72
[2019-03-15] MEDS: BASAGLAR SQ SCH (21:00)
[2019-03-15] MEDS: LISINOPRIL 10 MG TABLET PO SCH (22:10)
[2019-03-16 01:57] VITALS: BP 128/70
[2019-03-16] MEDS: CLINDAMYCIN PMX 600MG/50ML 50 ML IV SCH ×3 (04:59→18:39)
[2019-03-16] MEDS: BACLOFEN 10 MG TABLET PO SCH ×4 (06:00→22:02)
[2019-03-16] MEDS: SODIUM CHLORIDE 0.9% 1,000 ML IV SCH ×2 (06:30→15:28)
[2019-03-16 08:00] VITALS: BP 137/75
[2019-03-16] MEDS: FENOFIBRATE 145 MG TABLET PO SCH (09:00)
[2019-03-16] MEDS: (Dapagliflozin Propanediol (Farxiga) 5 MG) HOMEMEDPO SCH (09:00)
[2019-03-16] MEDS: INSULIN LISPRO 100 UNITS/ML, PEN SQ-INSULIN SCH ×4 (09:04→19:59)
[2019-03-16] MEDS: CLOPIDOGREL 75 MG TABLET PO SCH (09:05)
[2019-03-16] MEDS: NYSTATIN TOPICAL POWDER 15GM TP SCH ×2 (09:05→22:07)
[2019-03-16] MEDS: ENOXAPARIN 40 MG/0.4 ML SQ SCH (09:05)
[2019-03-16] MEDS: GABAPENTIN 300 MG CAPSULE PO SCH ×3 (09:05→22:02)
[2019-03-16] MEDS: OXYcodone/APAP 5/325MG TABLET PO PRN ×3 (09:27→22:08)
[2019-03-16] MEDS: ONDANSETRON 2MG/ML, 2ML IVPush PRN (10:25)
[2019-03-16 15:20] VITALS: BP 125/55
[2019-03-16 19:23] VITALS: BP 163/80
[2019-03-16] MEDS: BASAGLAR SQ SCH (21:00)
[2019-03-16] MEDS: LISINOPRIL 10 MG TABLET PO SCH (22:02)
[2019-03-17] MEDS: CLINDAMYCIN PMX 600MG/50ML 50 ML IV SCH ×3 (00:36→13:14)
[2019-03-17] MEDS: SODIUM CHLORIDE 0.9% 1,000 ML IV SCH ×2 (00:36→10:08)
[2019-03-17 01:09] VITALS: BP 143/68
[2019-03-17] MEDS: INSULIN LISPRO 100 UNITS/ML, PEN SQ-INSULIN SCH ×3 (07:00→15:42)
[2019-03-17 07:07] VITALS: BP 160/81
[2019-03-17 07:32] LABS: ANION GAP 8 mmol/L (5-15); CALCIUM 8.9 mg/dL (8.5-10.1); CHLORIDE 109 mmol/L (98-107); CREATININE 0.66 mg/dL (0.55-1.02)
[2019-03-17] MEDS: FENOFIBRATE 145 MG TABLET PO SCH (07:46)
[2019-03-17] MEDS: (Dapagliflozin Propanediol (Farxiga) 5 MG) HOMEMEDPO SCH (07:53)
[2019-03-17] MEDS: NYSTATIN TOPICAL POWDER 15GM TP SCH (07:53)
[2019-03-17] MEDS: CLOPIDOGREL 75 MG TABLET PO SCH (07:54)
[2019-03-17] MEDS: ENOXAPARIN 40 MG/0.4 ML SQ SCH (07:54)
[2019-03-17] MEDS: GABAPENTIN 300 MG CAPSULE PO SCH ×2 (07:54→16:00)
[2019-03-17] MEDS: OXYcodone/APAP 5/325MG TABLET PO PRN ×2 (07:55→15:47)
[2019-03-17] MEDS: ONDANSETRON 2MG/ML, 2ML IVPush PRN (10:07)
[2019-03-17] MEDS: BACLOFEN 10 MG TABLET PO SCH ×3 (10:08→16:00)
[2019-03-17 12:17] VITALS: BP 138/71
[2019-03-17] MEDS ORDERED: INSU100I34 SQ-INSULIN (15:17)
[2019-03-17] MEDS ORDERED: LACT1CAP35 PO (15:17)
[2019-03-17] MEDS ORDERED: NYST15PO2 TP (15:17)
[2019-03-17] MEDS ORDERED: CLIN300C8 PO (16:28)
== END 2019-03-17 18:24 | disposition home health service (06) | DRG 901 ==
LOC: ED 03-13 02:41 → EDIP 03-13 02:46 → 3N 03-13 04:10
PROVIDERS: ADMIT Internal Medicine; ATTEND Family Medicine
PROC: 0JBM0ZZ Excision of Left Upper Leg Subcutaneous Tissue and Fascia, Open Approach (ICD-10-PCS; principal; 2019-03-14)
DX: T81.31XA Disruption of external operation (surgical) wound, not elsewhere classified, initial encounter (principal); A41.9 Sepsis, unspecified organism; R65.20 Severe sepsis without septic shock; L03.314 Cellulitis of groin; L03.311 Cellulitis of abdominal wall; L03.116 Cellulitis of left lower limb; B37.2 Candidiasis of skin and nail; E11.51 Type 2 diabetes mellitus with diabetic peripheral angiopathy without gangrene; E11.65 Type 2 diabetes mellitus with hyperglycemia; E78.5 Hyperlipidemia, unspecified; F17.210 Nicotine dependence, cigarettes, uncomplicated; I10 Essential (primary) hypertension; I25.10 Atherosclerotic heart disease of native coronary artery without angina pectoris; J44.9 Chronic obstructive pulmonary disease, unspecified; K21.9 Gastro-esophageal reflux disease without esophagitis; K74.60 Unspecified cirrhosis of liver; E11.40 Type 2 diabetes mellitus with diabetic neuropathy, unspecified; M81.0 Age-related osteoporosis without current pathological fracture; N20.0 Calculus of kidney; Y83.8 Other surgical procedures as the cause of abnormal reaction of the patient, or of later complication, without mention of misadventure at the time of the procedure; Y92.89 Other specified places as the place of occurrence of the external cause; Z79.02 Long term (current) use of antithrombotics/antiplatelets; Z79.4 Long term (current) use of insulin; Z82.49 Family history of ischemic heart disease and other diseases of the circulatory system; Z90.710 Acquired absence of both cervix and uterus
CPT/HCPCS: 36415; 74174; 80048; 80053; 82962; 83605; 84145; 85025; 87040; 96361; 96365; G0378; J0696; J1650; J2405; J3370; Q9967; J1815; J2270; J7030; J7050

== ENCOUNTER → 2019-03-25 | Outpatient (CLI) | payer MEDICARE, OTHER, MEDICAID ==
[~2019-03-25] MED LIST changes: +CLIN300C8 PO; +LACT1CAP35 PO; +NYST15PO2 TP
== END | disposition home or self-care (01) ==
LOC: WOUND 09:59
PROVIDERS: ATTEND Family Medicine
DX: T81.31XA Disruption of external operation (surgical) wound, not elsewhere classified, initial encounter (principal); E66.01 Morbid (severe) obesity due to excess calories; I10 Essential (primary) hypertension; E11.51 Type 2 diabetes mellitus with diabetic peripheral angiopathy without gangrene; F17.210 Nicotine dependence, cigarettes, uncomplicated; Z90.710 Acquired absence of both cervix and uterus; Z68.32 Body mass index [BMI] 32.0-32.9, adult; Y83.8 Other surgical procedures as the cause of abnormal reaction of the patient, or of later complication, without mention of misadventure at the time of the procedure; Y92.89 Other specified places as the place of occurrence of the external cause
CPT/HCPCS: 97597; G0463

== ENCOUNTER → 2019-04-01 | Outpatient (CLI) | payer MEDICARE, OTHER, MEDICAID ==
[~2019-04-01] MED LIST changes: +OMEP40CA42 PO; -OMEP40CA6 PO
== END | disposition home or self-care (01) ==
LOC: WOUND 09:56
PROVIDERS: ATTEND Internal Medicine Cardiovascular Disease
DX: T81.31XD Disruption of external operation (surgical) wound, not elsewhere classified, subsequent encounter (principal); E66.01 Morbid (severe) obesity due to excess calories; I10 Essential (primary) hypertension; E11.51 Type 2 diabetes mellitus with diabetic peripheral angiopathy without gangrene; F17.210 Nicotine dependence, cigarettes, uncomplicated; Z90.710 Acquired absence of both cervix and uterus; Z68.32 Body mass index [BMI] 32.0-32.9, adult; Y83.8 Other surgical procedures as the cause of abnormal reaction of the patient, or of later complication, without mention of misadventure at the time of the procedure
CPT/HCPCS: G0463

== ENCOUNTER 2019-04-06 10:07 | Emergency (ER) | payer MEDICARE, OTHER ==
[~2019-04-06] VITALS: Ht 154.9 cm; Wt 84.0 kg
--- NOTE | 2019-04-06 11:01 | NUR ---
JOLEEN RESTING IN BED. AWAITING DOCTOR.
[2019-04-06] MEDS ORDERED: NEOSPORIN OINT. PKT 1 PACKET ONE (11:37)
--- NOTE | 2019-04-06 11:55 | NUR ---
WOUND DRESSING CHANGED. Addendum: 04/06/19 at 1156 by JIMY FOUND LEFT PEDAL PULSE WITH DOPPLER. ALSO ABLE TO PALPATE A WEAK LEFT PEDAL PULSE
[2019-04-06 12:14] LABS: BASOPHILS # (AUTO) 0.24 x10^3/uL (0-0.1); BASOPHILS % (AUTO) 2 % (0-1); EOSINOPHILS # (AUTO) 0.16 x10^3/uL (0-0.4); EOSINOPHILS % (AUTO) 2 % (1-7); LYMPHOCYTES # (AUTO) 4.06 x10^3/uL (1-3.4); LYMPHOCYTES % (AUTO) 39 % (22-44); MD NO; MEAN CORPUSCULAR HEMOGLOBIN 29.3 pg (27.0-34.8); MEAN CORPUSCULAR HGB CONC 32.5 g/dL (32.4-35.8); MEAN CORPUSCULAR VOLUME 90.2 fL (80-100); MEAN PLATELET VOLUME 9.5 fL (7.4-10.4); MONOCYTES # (AUTO) 0.38 x10^3/uL (0.2-0.8); MONOCYTES % (AUTO) 4 % (2-9); NEUTROPHILS # (AUTO) 5.63 x10^3/uL (1.8-6.8); NEUTROPHILS % (AUTO) 54 % (42-75); PLATELET COUNT 257 x10^3/uL (130-400); RED BLOOD COUNT 4.57 x10^6/uL (3.82-5.3); RED CELL DISTRIBUTION WIDTH 14.5 % (9.6-15.2)
[2019-04-06 12:24] LABS: ALBUMIN 3.8 g/dL (3.4-5.0); ANION GAP 6 mmol/L (5-15); CALCIUM 9.5 mg/dL (8.5-10.1); CHLORIDE 106 mmol/L (98-107); CREATININE 0.95 mg/dL (0.55-1.02)
--- NOTE | 2019-04-06 12:33 | NUR ---
PAITENT RESTING IN BED. WATCHING TV. AWAITING DOCTORS DISPO
[2019-04-06 13:16] VITALS: BP 128/69
--- NOTE | 2019-04-06 13:16 | NUR ---
JOLEEN SPEAKING WITH PA ABOUT COURSE OF TREATMENT. GOING TO DISCHARGE
== END 2019-04-06 13:32 | disposition home or self-care (01) ==
LOC: ED 13:21
DX: T81.89XA Other complications of procedures, not elsewhere classified, initial encounter (principal); E78.00 Pure hypercholesterolemia, unspecified; E11.65 Type 2 diabetes mellitus with hyperglycemia; K21.9 Gastro-esophageal reflux disease without esophagitis; I10 Essential (primary) hypertension; I25.10 Atherosclerotic heart disease of native coronary artery without angina pectoris; J44.9 Chronic obstructive pulmonary disease, unspecified; Z90.89 Acquired absence of other organs; Z90.49 Acquired absence of other specified parts of digestive tract; Z90.710 Acquired absence of both cervix and uterus; Z87.891 Personal history of nicotine dependence
CPT/HCPCS: 36415; 80048; 82040; 85025; 99284

== ENCOUNTER → 2019-04-15 | Outpatient (CLI) | payer MEDICARE, OTHER, MEDICAID | END | disposition home or self-care (01) | LOC: WOUND 09:00 | PROVIDERS: ATTEND Family Medicine | DX: T81.31XD Disruption of external operation (surgical) wound, not elsewhere classified, subsequent encounter (principal); E66.01 Morbid (severe) obesity due to excess calories; I10 Essential (primary) hypertension; E11.51 Type 2 diabetes mellitus with diabetic peripheral angiopathy without gangrene; I25.10 Atherosclerotic heart disease of native coronary artery without angina pectoris; J44.9 Chronic obstructive pulmonary disease, unspecified; K21.9 Gastro-esophageal reflux disease without esophagitis; E78.00 Pure hypercholesterolemia, unspecified; M81.0 Age-related osteoporosis without current pathological fracture; E78.5 Hyperlipidemia, unspecified; G89.29 Other chronic pain; E11.40 Type 2 diabetes mellitus with diabetic neuropathy, unspecified; F17.210 Nicotine dependence, cigarettes, uncomplicated; Z79.02 Long term (current) use of antithrombotics/antiplatelets; Z79.4 Long term (current) use of insulin; Z79.01 Long term (current) use of anticoagulants; Z90.49 Acquired absence of other specified parts of digestive tract; Z90.710 Acquired absence of both cervix and uterus; Z89.422 Acquired absence of other left toe(s); Z86.73 Personal history of transient ischemic attack (TIA), and cerebral infarction without residual deficits; Z88.6 Allergy status to analgesic agent; Z91.012 Allergy to eggs; Z88.5 Allergy status to narcotic agent; Z88.0 Allergy status to penicillin; Z88.8 Allergy status to other drugs, medicaments and biological substances; Z91.018 Allergy to other foods; Y83.8 Other surgical procedures as the cause of abnormal reaction of the patient, or of later complication, without mention of misadventure at the time of the procedure | CPT/HCPCS: 97597 ==

== ENCOUNTER → 2019-04-20 | Outpatient (CLI) | payer MEDICARE, OTHER, MEDICAID | END | disposition home or self-care (01) | LOC: WOUND 10:02 | PROVIDERS: ATTEND Internal Medicine | DX: T81.31XD Disruption of external operation (surgical) wound, not elsewhere classified, subsequent encounter (principal); E66.01 Morbid (severe) obesity due to excess calories; I10 Essential (primary) hypertension; E11.51 Type 2 diabetes mellitus with diabetic peripheral angiopathy without gangrene; I25.10 Atherosclerotic heart disease of native coronary artery without angina pectoris; J44.9 Chronic obstructive pulmonary disease, unspecified; K21.9 Gastro-esophageal reflux disease without esophagitis; E78.00 Pure hypercholesterolemia, unspecified; M81.0 Age-related osteoporosis without current pathological fracture; E11.59 Type 2 diabetes mellitus with other circulatory complications; E78.5 Hyperlipidemia, unspecified; G89.29 Other chronic pain; E11.40 Type 2 diabetes mellitus with diabetic neuropathy, unspecified; F17.210 Nicotine dependence, cigarettes, uncomplicated; Z79.02 Long term (current) use of antithrombotics/antiplatelets; Z79.4 Long term (current) use of insulin; Z79.01 Long term (current) use of anticoagulants; Z90.49 Acquired absence of other specified parts of digestive tract; Z90.710 Acquired absence of both cervix and uterus; Z89.422 Acquired absence of other left toe(s); Z86.73 Personal history of transient ischemic attack (TIA), and cerebral infarction without residual deficits; Z88.6 Allergy status to analgesic agent; Z91.012 Allergy to eggs; Z88.5 Allergy status to narcotic agent; Z88.0 Allergy status to penicillin; Z88.8 Allergy status to other drugs, medicaments and biological substances; Z91.018 Allergy to other foods; Z68.32 Body mass index [BMI] 32.0-32.9, adult; Y83.8 Other surgical procedures as the cause of abnormal reaction of the patient, or of later complication, without mention of misadventure at the time of the procedure | CPT/HCPCS: G0463 ==

== ENCOUNTER → 2019-06-06 | Outpatient (CLI) | payer MEDICARE, OTHER, MEDICAID | END | disposition home or self-care (01) | LOC: CFH 12:31 | PROVIDERS: ATTEND Nurse Practitioner | DX: C34.90 Malignant neoplasm of unspecified part of unspecified bronchus or lung (principal); J84.10 Pulmonary fibrosis, unspecified | CPT/HCPCS: 71250 ==

== ENCOUNTER 2019-06-27 10:42 | Emergency (ER) | payer MEDICARE, OTHER, MEDICAID ==
[~2019-06-27] VITALS: Ht 154.9 cm; Wt 81.1 kg
[2019-06-27] MEDS ORDERED: SODIUM CHLORIDE FLUSH 10ML SYR IVF ONE (11:30)
[2019-06-27] MEDS ORDERED: ALBUTEROL/IPRATROPIUM 2.5MG/0.5MG, 3 ML ONE (11:47)
[2019-06-27 12:06] LABS: BASOPHILS # (AUTO) 0.12 x10^3/uL (0-0.1); BASOPHILS % (AUTO) 1 % (0-1); EOSINOPHILS % (AUTO) 2 % (1-7); LYMPHOCYTES % (AUTO) 30 % (22-44); MD NO; MEAN CORPUSCULAR HEMOGLOBIN 29.2 pg (27.0-34.8); MEAN CORPUSCULAR VOLUME 88.4 fL (80-100); MEAN PLATELET VOLUME 9.6 fL (7.4-10.4); MONOCYTES % (AUTO) 3 % (2-9); NEUTROPHILS # (AUTO) 6.08 x10^3/uL (1.8-6.8); NEUTROPHILS % (AUTO) 64 % (42-75); PLATELET COUNT 221 x10^3/uL (130-400); RED BLOOD COUNT 4.67 x10^6/uL (3.82-5.3); RED CELL DISTRIBUTION WIDTH 15.7 % (9.6-15.2)
[2019-06-27] MEDS: ALBUTEROL/IPRATROPIUM 2.5MG/0.5MG, 3 ML NPPB SCH (12:14)
[2019-06-27 12:15] LABS: ALANINE AMINOTRANSFERASE 16 U/L (12-78); ALBUMIN 3.5 g/dL (3.4-5.0); ANION GAP 8 mmol/L (5-15); CALCIUM 9.5 mg/dL (8.5-10.1); CHLORIDE 102 mmol/L (98-107)
[2019-06-27 12:20] LABS: ALKALINE PHOSPHATASE 88 U/L (45-117); BILIRUBIN,TOTAL 0.3 mg/dL (0.2-1.0); CREATININE 0.96 mg/dL (0.55-1.02); TOTAL PROTEIN 7.8 g/dL (6.4-8.2); TROPONIN I < 0.015 ng/mL (0.000-0.045)
[2019-06-27] MEDS ORDERED: OMNIPAQUE 350 MG/ML, 100ML BOTTLE ONE (13:02)
[2019-06-27 13:38] VITALS: BP 130/46
--- NOTE | 2019-06-27 13:55 | NUR ---
RECEIEVED REPORT FROM JOSE LUIS MCPHERSON UPRIGHT ON GURNEY AWAKE & CALM, RESPONDS APPROP TO STAFF, NAD, COMFORT MEASURES PROVIDED, CALL LIGHT WITHIN REACH.
--- NOTE | 2019-06-27 14:48 | NUR ---
TASK RN: PT W/ HOARSE VOICE. AIRWAY PATENT, SPEECH CLEAR; PT MANAGING OWN SECRETIONS. DC EDUCATION PROVIDED, PT DEMONSTRATES UNDERSTANDING. PT AMBUALTED STEADILY TO DC WITH SO. SO TO TRANSPORT PT HOME.
== END 2019-06-27 14:50 | disposition home or self-care (01) ==
LOC: ED 14:33
DX: J20.8 Acute bronchitis due to other specified organisms (principal); J04.0 Acute laryngitis; I10 Essential (primary) hypertension; E11.9 Type 2 diabetes mellitus without complications; I25.10 Atherosclerotic heart disease of native coronary artery without angina pectoris; J44.9 Chronic obstructive pulmonary disease, unspecified; K21.9 Gastro-esophageal reflux disease without esophagitis; E78.00 Pure hypercholesterolemia, unspecified; E78.5 Hyperlipidemia, unspecified; F17.200 Nicotine dependence, unspecified, uncomplicated; Z90.49 Acquired absence of other specified parts of digestive tract; Z90.710 Acquired absence of both cervix and uterus; Z88.0 Allergy status to penicillin; Z88.5 Allergy status to narcotic agent; Z88.6 Allergy status to analgesic agent
CPT/HCPCS: 36415; 71045; 71275; 80053; 84484; 85025; 85379; 87040; 93005; 94640; 99284; J7620; Q9967

== ENCOUNTER → 2019-07-25 | Outpatient (CLI) | payer MEDICARE, OTHER, MEDICAID ==
[~2019-07-25] MED LIST changes: -EVOL140P SQ; +EVOL140P3 SQ; +FENO145T19 PO; -FENO145T30 PO; +OMNIPAQUE 350 MG/ML, 100ML BOTTLE ONE
== END | disposition home or self-care (01) ==
LOC: CFH 12:47
PROVIDERS: ATTEND Student in an Organized Health Care Education/Training Program
DX: R49.0 Dysphonia (principal); R07.0 Pain in throat
CPT/HCPCS: 70491; Q9967

== ENCOUNTER → 2019-08-05 | Outpatient (CLI) | payer MEDICARE, OTHER, MEDICAID ==
[~2019-08-05] MED LIST changes: -OMNIPAQUE 350 MG/ML, 100ML BOTTLE ONE
== END | disposition home or self-care (01) ==
LOC: CVU 09:23
PROVIDERS: ATTEND Surgery
DX: I73.89 Other specified peripheral vascular diseases (principal); I77.1 Stricture of artery; M25.872 Other specified joint disorders, left ankle and foot; I70.202 Unspecified atherosclerosis of native arteries of extremities, left leg
CPT/HCPCS: 93922; 93926

== ENCOUNTER → 2019-08-10 | Outpatient (CLI) | payer MEDICARE, OTHER, MEDICAID | END | disposition home or self-care (01) | LOC: RAD 13:41 | PROVIDERS: ATTEND Student in an Organized Health Care Education/Training Program | DX: R49.0 Dysphonia (principal) | CPT/HCPCS: 74220 ==

== ENCOUNTER 2019-11-20 14:04 | Emergency (ER) | payer MEDICARE, OTHER, MEDICAID ==
[~2019-11-20] VITALS: Ht 154.9 cm; Wt 77.0 kg
--- NOTE | 2019-11-20 15:31 | NUR ---
ASSOCIATE PROFESSOR OF KINESIOLOGY: PT TO ROOM FROM LOBBY VIA
[2019-11-20 15:51] LABS: BASOPHILS # (AUTO) 0.09 x10^3/uL (0-0.1); BASOPHILS % (AUTO) 1 % (0-1); EOSINOPHILS # (AUTO) 0.13 x10^3/uL (0-0.4); EOSINOPHILS % (AUTO) 2 % (1-7); LYMPHOCYTES # (AUTO) 3.92 x10^3/uL (1-3.4); LYMPHOCYTES % (AUTO) 44 % (22-44); MD NO; MEAN CORPUSCULAR HEMOGLOBIN 31.3 pg (27.0-34.8); MEAN CORPUSCULAR VOLUME 94.8 fL (80-100); MEAN PLATELET VOLUME 9.3 fL (7.4-10.4); MONOCYTES # (AUTO) 0.36 x10^3/uL (0.2-0.8); MONOCYTES % (AUTO) 4 % (2-9); NEUTROPHILS # (AUTO) 4.37 x10^3/uL (1.8-6.8); NEUTROPHILS % (AUTO) 49 % (42-75); PLATELET COUNT 239 x10^3/uL (130-400); RED BLOOD COUNT 4.57 x10^6/uL (3.82-5.3); RED CELL DISTRIBUTION WIDTH 14.6 % (9.6-15.2)
[2019-11-20 16:04] LABS: ANION GAP 7 mmol/L (5-15); CALCIUM 9.8 mg/dL (8.5-10.1); CHLORIDE 107 mmol/L (98-107); CREATININE 0.82 mg/dL (0.55-1.02)
--- NOTE | 2019-11-20 16:04 | NUR ---
ULTRASOUND IN ROOM
[2019-11-20 16:25] VITALS: BP 120/59
--- NOTE | 2019-11-20 16:25 | NUR ---
THIS IS A 64 YO FEMALE COMING IN FOR BILATERAL LOWER LEG SWELLING X2 WEEKS, TENDER TO PALPATION. CSM INTACT, USED DOPPLER TO LOCATED PEDAL PULSES, PRESENT. DENIES ANY CARDIAC HX. PATIENT IN NON VERBAL DUE TO LARYNGITIS. SPO2 AND BP MONITORING IN PLACE, AWAITING US READ
--- NOTE | 2019-11-20 17:48 | NUR ---
Patient/Caregiver given discharge instructions and they have confirmed that they understand the instructions. Patient ambulatory with steady gait.
== END 2019-11-20 17:49 | disposition home or self-care (01) ==
LOC: ED 15:38
DX: M79.672 Pain in left foot (principal); M79.671 Pain in right foot; R49.9 Unspecified voice and resonance disorder; R94.31 Abnormal electrocardiogram [ECG] [EKG]; F17.210 Nicotine dependence, cigarettes, uncomplicated; E11.65 Type 2 diabetes mellitus with hyperglycemia; I10 Essential (primary) hypertension; J44.9 Chronic obstructive pulmonary disease, unspecified; K21.9 Gastro-esophageal reflux disease without esophagitis; E78.00 Pure hypercholesterolemia, unspecified; F17.200 Nicotine dependence, unspecified, uncomplicated; Z86.718 Personal history of other venous thrombosis and embolism; Z90.89 Acquired absence of other organs; Z90.49 Acquired absence of other specified parts of digestive tract; Z90.710 Acquired absence of both cervix and uterus
CPT/HCPCS: 36415; 80048; 83880; 85025; 93005; 93970; 99285; 99406

== ENCOUNTER → 2019-12-06 | Outpatient (CLI) | payer MEDICARE, OTHER, MEDICAID ==
[2019-12-06 11:10] LABS: ANION GAP 9 mmol/L (5-15); CALCIUM 10.1 mg/dL (8.5-10.1); CHLORIDE 103 mmol/L (98-107)
[2019-12-06 11:22] LABS: CHOL/HDL RATIO 2.9; CHOLESTEROL, TOTAL 135 mg/dL (140-239); CREATININE 0.96 mg/dL (0.55-1.02); HDL CHOL % 34 % (28-40); HDL CHOLESTEROL (DIRECT) 46 mg/dL (40-60); LDL CHOLESTEROL,CALCULATED 10 mg/dL (54-169); LDL/HDL RATIO 0.2 (0.5-3.0); TRIGLYCERIDES 394 mg/dL (50-200); VLDL CHOLESTEROL 79 mg/dL (0-25)
== END | disposition home or self-care (01) ==
LOC: LAB 09:23
PROVIDERS: ATTEND Student in an Organized Health Care Education/Training Program
DX: E11.65 Type 2 diabetes mellitus with hyperglycemia (principal); E78.5 Hyperlipidemia, unspecified; M85.80 Other specified disorders of bone density and structure, unspecified site
CPT/HCPCS: 36415; 80048; 80061; 82043; 82306; 82570; 83036; 84443

== ENCOUNTER → 2019-12-21 | Outpatient (CLI) | payer MEDICARE, OTHER, MEDICAID | END | disposition home or self-care (01) | LOC: CFH 12:42 | PROVIDERS: ATTEND Physician Assistant Surgical | DX: M94.211 Chondromalacia, right shoulder (principal); M79.89 Other specified soft tissue disorders; M75.41 Impingement syndrome of right shoulder ==

== ENCOUNTER → 2020-01-09 | Outpatient (CLI) | payer MEDICARE, OTHER, MEDICAID | END | disposition home or self-care (01) | LOC: CFH 10:23 | PROVIDERS: ATTEND Internal Medicine Cardiovascular Disease | DX: I34.8 Other nonrheumatic mitral valve disorders (principal); I10 Essential (primary) hypertension; Z86.73 Personal history of transient ischemic attack (TIA), and cerebral infarction without residual deficits; Z87.891 Personal history of nicotine dependence | CPT/HCPCS: 93306 ==

== ENCOUNTER → 2020-01-11 | Outpatient (CLI) | payer MEDICARE, OTHER, MEDICAID ==
[2020-01-11 09:21] LABS: MEAN CORPUSCULAR HEMOGLOBIN 31.1 pg (27.0-34.8); MEAN CORPUSCULAR HGB CONC 32.6 g/dL (32.4-35.8); MEAN CORPUSCULAR VOLUME 95.4 fL (80-100); MEAN PLATELET VOLUME 9.4 fL (7.4-10.4); PLATELET COUNT 258 x10^3/uL (130-400); RED BLOOD COUNT 4.69 x10^6/uL (3.82-5.3); RED CELL DISTRIBUTION WIDTH 13.4 % (9.6-15.2)
[2020-01-11 09:27] LABS: MICROSCOPIC INDICATED
[2020-01-11 09:33] LABS: ALBUMIN 4.1 g/dL (3.4-5.0); ANION GAP 9 mmol/L (5-15); CHLORIDE 102 mmol/L (98-107)
[2020-01-11 09:44] LABS: ALANINE AMINOTRANSFERASE 15 U/L (12-78); ALKALINE PHOSPHATASE 90 U/L (45-117); BILIRUBIN,TOTAL 0.3 mg/dL (0.2-1.0); CHOL/HDL RATIO 3.3; CHOLESTEROL, TOTAL 159 mg/dL (140-239); CREATININE 0.89 mg/dL (0.55-1.02); HDL CHOL % 30 % (28-40); HDL CHOLESTEROL (DIRECT) 48 mg/dL (40-60); TOTAL PROTEIN 8.4 g/dL (6.4-8.2); TRIGLYCERIDES 554 mg/dL (50-200)
[2020-01-11 10:03] LABS: MD YES
[2020-01-11 10:41] LABS: EOS#(MANUAL) 0.11 x10^3/uL (0.0-0.4); EOS% (MANUAL) 1 % (1-7); LYMPH#(MANUAL) 5.93 x10^3/uL (1-3.4); LYMPHS% (MANUAL) 52 % (22-44); MONOS#(MANUAL) 0.57 x10^3/uL (0.3-2.7); MONOS% (MANUAL) 5 % (2-9); SEG#(MANUAL) 4.79 x10^3/uL (1.8-6.8); SEGS% (MANUAL) 42 % (42-75)
[2020-01-11 10:42] LABS: <PLATELET ESTIMATE> ADEQUATE; <PLT MORPHOLOGY> NORMAL PLT MORPH; <RBC MORPHOLOGY> NORMAL
== END | disposition home or self-care (01) ==
LOC: LAB 08:48
PROVIDERS: ATTEND Internal Medicine Cardiovascular Disease
DX: E11.65 Type 2 diabetes mellitus with hyperglycemia (principal); E11.40 Type 2 diabetes mellitus with diabetic neuropathy, unspecified; E78.2 Mixed hyperlipidemia; K74.60 Unspecified cirrhosis of liver; E78.1 Pure hyperglyceridemia
CPT/HCPCS: 36415; 80053; 80061; 81001; 82043; 82570; 83036; 84443; 85025; 86704; 86706; 86708; 86709; 86803; 87340

== ENCOUNTER → 2020-02-07 | Outpatient (CLI) | payer MEDICARE, OTHER, MEDICAID | END | disposition home or self-care (01) | LOC: CFH 15:39 | PROVIDERS: ATTEND Nurse Practitioner | DX: C34.11 Malignant neoplasm of upper lobe, right bronchus or lung (principal); J44.9 Chronic obstructive pulmonary disease, unspecified; R91.1 Solitary pulmonary nodule; R59.0 Localized enlarged lymph nodes; Z72.0 Tobacco use | CPT/HCPCS: 71250 ==

== ENCOUNTER → 2020-02-10 | Outpatient (CLI) | payer MEDICARE, OTHER, MEDICAID ==
[~2020-02-10] MED LIST changes: +DULO30CA2 PO; +FENO145T32 PO; +OMEP20TA62 PO; +PANT40TA6 PO; +novolog SC
[2020-02-10 13:27] LABS: ANION GAP 5 mmol/L (5-15); CALCIUM 9.7 mg/dL (8.5-10.1); CHLORIDE 106 mmol/L (98-107)
[2020-02-10 13:33] LABS: ALANINE AMINOTRANSFERASE 13 U/L (12-78); ALKALINE PHOSPHATASE 62 U/L (45-117); BILIRUBIN,TOTAL 0.3 mg/dL (0.2-1.0); CREATININE 0.84 mg/dL (0.55-1.02); TOTAL PROTEIN 8.1 g/dL (6.4-8.2)
== END | disposition home or self-care (01) ==
LOC: STAR 10:55
PROVIDERS: ATTEND Orthopaedic Surgery
DX: Z01.812 Encounter for preprocedural laboratory examination (principal); Z20.828 Contact with and (suspected) exposure to other viral communicable diseases; M19.011 Primary osteoarthritis, right shoulder
CPT/HCPCS: 36415; 80053; 87635

== ENCOUNTER 2020-02-14 06:51 | Day surgery (SDC) | payer MEDICARE, OTHER, MEDICAID ==
[~2020-02-14] VITALS: Ht 154.9 cm; Wt 80.0 kg
[2020-02-14] MEDS ORDERED: LACTATED RINGERS 1,000 ML IV SCH (07:06)
[2020-02-14 07:16] VITALS: BP 148/75
[2020-02-14] MEDS ORDERED: CHLORHEXIDINE 15 ML UDC MM ONE (07:30)
[2020-02-14] MEDS ORDERED: MIDAZOLAM 1 MG/ML, 2ML ONE (07:35)
[2020-02-14] MEDS ORDERED: FENTANYL PF 250 MCG/5ML ONE (07:35)
[2020-02-14] MEDS ORDERED: HYDROmorphone 1 MG/ML, 1ML INJ IVPush PRN (08:00)
[2020-02-14] MEDS ORDERED: PROMETHAZINE 25 MG/ML, 1ML IVPush PRN (08:00)
[2020-02-14] MEDS ORDERED: ONDANSETRON 2MG/ML, 2ML IVPush PRN (08:00)
[2020-02-14] MEDS ORDERED: DIAZEPAM 5 MG/ML, 2ML IVPush PRN (08:00)
[2020-02-14] MEDS ORDERED: MEPERIDINE/PF 25MG/0.5ML IVPush PRN (08:00)
[2020-02-14] MEDS ORDERED: OXYcodone 5 MG/5 ML ORAL.SOL UDC PO PRN (08:00)
[2020-02-14] MEDS ORDERED: SUGAMMADEX 200 MG/2 ML IVPush ONE (08:31)
[2020-02-14] MEDS ORDERED: ROCURONIUM 10 MG/ML,10ML ONE (08:31)
[2020-02-14] MEDS ORDERED: ONDANSETRON 2MG/ML, 2ML ONE (08:31)
[2020-02-14] MEDS ORDERED: PROPOFOL 10 MG/ML, 20ML ONE (08:31)
[2020-02-14] MEDS ORDERED: CEFAZOLIN 1,000 MG ONE (08:31)
[2020-02-14] MEDS ORDERED: DEXAMETHASONE 4 MG/ML, 1ML ONE (08:31)
[2020-02-14] MEDS ORDERED: CLINDAMYCIN 150 MG/ML, 6ML ONE (08:48)
[2020-02-14] MEDS ORDERED: FENTANYL PF 100 MCG/2ML ONE ×2 (09:58→10:26)
[2020-02-14] MEDS: FENTANYL PF 100 MCG/2ML IV PRN ×3 (10:00→10:27)
[2020-02-14] MEDS ORDERED: OXYcodone 5 MG/5 ML ORAL.SOL UDC ONE (10:14)
[2020-02-14] MEDS ORDERED: MEPERIDINE/PF 25MG/ML,1ML ONE (10:38)
== END 2020-02-14 14:00 | disposition home or self-care (01) ==
LOC: OUT 06:51
PROVIDERS: ATTEND Orthopaedic Surgery
DX: S43.491A Other sprain of right shoulder joint, initial encounter (principal); M65.811 Other synovitis and tenosynovitis, right shoulder; M75.41 Impingement syndrome of right shoulder; M75.51 Bursitis of right shoulder; M19.011 Primary osteoarthritis, right shoulder; E11.9 Type 2 diabetes mellitus without complications; F32.9 Major depressive disorder, single episode, unspecified; I10 Essential (primary) hypertension; E78.5 Hyperlipidemia, unspecified; J45.909 Unspecified asthma, uncomplicated; Z79.4 Long term (current) use of insulin; Z79.899 Other long term (current) drug therapy; Z88.8 Allergy status to other drugs, medicaments and biological substances; Z90.710 Acquired absence of both cervix and uterus; Z90.49 Acquired absence of other specified parts of digestive tract; Z98.890 Other specified postprocedural states; W19.XXXA Unspecified fall, initial encounter; Y93.89 Activity, other specified; Y92.89 Other specified places as the place of occurrence of the external cause; Y99.8 Other external cause status
CPT/HCPCS: 29823; 29824; 29826; 82962; J0690; J1100; J2175; J2250; J2405; J2704; J3010; J7120

== ENCOUNTER → 2020-02-22 | Outpatient (CLI) | payer MEDICARE, OTHER, MEDICAID | END | disposition home or self-care (01) | LOC: PETCFH 09:50 | PROVIDERS: ATTEND Nurse Practitioner Family | DX: C34.90 Malignant neoplasm of unspecified part of unspecified bronchus or lung (principal); R91.8 Other nonspecific abnormal finding of lung field; R59.0 Localized enlarged lymph nodes; F17.200 Nicotine dependence, unspecified, uncomplicated; Z85.118 Personal history of other malignant neoplasm of bronchus and lung | CPT/HCPCS: 78815; A9552 ==

== ENCOUNTER → 2020-04-05 | Outpatient (CLI) | payer MEDICARE, OTHER, MEDICAID ==
[~2020-04-05] MED LIST changes: -ALEN70TA6 PO; +ALEN70TA66 PO
[2020-04-05 10:33] LABS: BASOPHILS % (AUTO) 1 % (0-1); EOSINOPHILS % (AUTO) 2 % (1-7); LYMPHOCYTES % (AUTO) 51 % (22-44); MEAN CORPUSCULAR HEMOGLOBIN 31.1 pg (27.0-34.8); MEAN CORPUSCULAR HGB CONC 33.2 g/dL (32.4-35.8); MEAN PLATELET VOLUME 9.4 fL (7.4-10.4); MONOCYTES % (AUTO) 5 % (2-9); NEUTROPHILS % (AUTO) 42 % (42-75); PLATELET COUNT 266 x10^3/uL (130-400); RED BLOOD COUNT 4.49 x10^6/uL (3.82-5.3); RED CELL DISTRIBUTION WIDTH 13.7 % (9.6-15.2)
[2020-04-05 10:45] LABS: ALANINE AMINOTRANSFERASE 13 U/L (12-78); ALBUMIN 3.9 g/dL (3.4-5.0); ANION GAP 8 mmol/L (5-15); CALCIUM 9.5 mg/dL (8.5-10.1); CHLORIDE 111 mmol/L (98-107); CREATININE 1.02 mg/dL (0.55-1.02)
[2020-04-05 10:47] LABS: ALKALINE PHOSPHATASE 63 U/L (45-117); BILIRUBIN,TOTAL 0.4 mg/dL (0.2-1.0); TOTAL PROTEIN 7.9 g/dL (6.4-8.2)
[2020-04-05 10:55] LABS: MD SCAN
== END | disposition home or self-care (01) ==
LOC: LAB 10:16
PROVIDERS: ATTEND Specialist
DX: C34.32 Malignant neoplasm of lower lobe, left bronchus or lung (principal)
CPT/HCPCS: 36415; 80053; 85025

== ENCOUNTER → 2020-04-13 | Outpatient (CLI) | payer MEDICARE, OTHER, MEDICAID ==
[2020-04-13 10:24] LABS: ALBUMIN 4.1 g/dL (3.4-5.0)
[2020-04-13 10:32] LABS: ALANINE AMINOTRANSFERASE 13 U/L (12-78); ALKALINE PHOSPHATASE 72 U/L (45-117); BILIRUBIN, DIRECT < 0.1 mg/dL (0.1-0.2); BILIRUBIN,INDIRECT 0.5 mg/dL (0.0-2.0); BILIRUBIN,TOTAL 0.6 mg/dL (0.2-1.0); CHOL/HDL RATIO 2.1; CHOLESTEROL, TOTAL 106 mg/dL (140-239); HDL CHOL % 47 % (28-40); HDL CHOLESTEROL (DIRECT) 50 mg/dL (40-60); LDL CHOLESTEROL,CALCULATED 6 mg/dL (54-169); LDL/HDL RATIO 0.1 (0.5-3.0); TOTAL PROTEIN 8.4 g/dL (6.4-8.2); TRIGLYCERIDES 251 mg/dL (50-200); VLDL CHOLESTEROL 50 mg/dL (0-25)
== END | disposition home or self-care (01) ==
LOC: LAB 09:47
PROVIDERS: ATTEND Internal Medicine Cardiovascular Disease
DX: I73.9 Peripheral vascular disease, unspecified (principal); E11.65 Type 2 diabetes mellitus with hyperglycemia; E78.2 Mixed hyperlipidemia
CPT/HCPCS: 36415; 80061; 80076; 83036

== ENCOUNTER 2020-04-20 11:33 | Day surgery (SDC) | payer MEDICARE, OTHER, MEDICAID ==
[~2020-04-20] VITALS: Ht 152.4 cm; Wt 77.9 kg
[2020-04-20] MEDS ORDERED: VANCOMYCIN PMX 1GM/200ML 200 ML IV ONE (11:49)
[2020-04-20] MEDS ORDERED: PLEASE ENTER HEIGHT AND WEIGHT MC SCH (12:00)
[2020-04-20 12:05] VITALS: BP 102/78
[2020-04-20] MEDS ORDERED: LACTATED RINGERS 1,000 ML IV SCH (12:30)
[2020-04-20] MEDS ORDERED: CHLORHEXIDINE 15 ML UDC MM ONE (12:30)
[2020-04-20] MEDS ORDERED: CHLORHEXIDINE 15 ML UDC ONE (12:40)
[2020-04-20] MEDS ORDERED: [UNRECOGNIZED DRUG - OTHER] (12:50)
[2020-04-20] MEDS ORDERED: GABA600T7 PO (12:50)
[2020-04-20] MEDS ORDERED: LIDOCAINE 1%, 20ML ONE (13:22)
[2020-04-20] MEDS ORDERED: LIDOCAINE 1%, 10ML ONE (13:22)
[2020-04-20] MEDS ORDERED: FENTANYL PF 100 MCG/2ML ONE ×4 (14:30→16:15)
[2020-04-20] MEDS ORDERED: PROPOFOL 10 MG/ML, 20ML ONE (15:18)
[2020-04-20] MEDS ORDERED: CEFAZOLIN 1,000 MG ONE (15:18)
[2020-04-20] MEDS ORDERED: ONDANSETRON 2MG/ML, 2ML ONE ×2 (15:18→15:39)
[2020-04-20] MEDS ORDERED: SUCCINYLCHOLINE 20 MG/ML, 10ML ONE (15:18)
[2020-04-20] MEDS ORDERED: DEXAMETHASONE 4 MG/ML, 1ML ONE (15:18)
[2020-04-20] MEDS ORDERED: NEOSTIGMINE 1 MG/ML, 10ML ONE (15:18)
[2020-04-20] MEDS ORDERED: ROCURONIUM 10MG/ML,5ML ONE (15:18)
[2020-04-20] MEDS ORDERED: GLYCOPYRROLATE 0.2MG/1ML, 5ML ONE (15:18)
[2020-04-20] MEDS: FENTANYL PF 100 MCG/2ML IV PRN ×5 (15:40→16:26)
[2020-04-20] MEDS ORDERED: ONDANSETRON 2MG/ML, 2ML IVPush PRN (16:00)
[2020-04-20] MEDS ORDERED: LABETALOL 5MG/ML, 20ML IV PRN (16:00)
[2020-04-20] MEDS ORDERED: PROMETHAZINE 25 MG/ML, 1ML IVPush PRN (16:00)
[2020-04-20] MEDS ORDERED: OXYcodone 5 MG/5 ML ORAL.SOL UDC PO PRN (16:00)
[2020-04-20] MEDS ORDERED: hydrALAzine 20 MG/ML, 1ML IV PRN (16:00)
[2020-04-20] MEDS ORDERED: HALOPERIDOL 5 MG/ML IV PRN (16:00)
[2020-04-20] MEDS ORDERED: HYDROmorphone 1 MG/ML, 1ML INJ IVPush PRN (16:00)
== END 2020-04-20 17:25 | disposition home or self-care (01) ==
LOC: RAD 11:33
PROVIDERS: ATTEND Specialist
DX: Z45.2 Encounter for adjustment and management of vascular access device (principal); C34.32 Malignant neoplasm of lower lobe, left bronchus or lung; C34.11 Malignant neoplasm of upper lobe, right bronchus or lung; I10 Essential (primary) hypertension; J44.9 Chronic obstructive pulmonary disease, unspecified; I25.10 Atherosclerotic heart disease of native coronary artery without angina pectoris; E11.9 Type 2 diabetes mellitus without complications; E78.5 Hyperlipidemia, unspecified; F17.210 Nicotine dependence, cigarettes, uncomplicated; Z86.73 Personal history of transient ischemic attack (TIA), and cerebral infarction without residual deficits; Z20.828 Contact with and (suspected) exposure to other viral communicable diseases; Z79.82 Long term (current) use of aspirin; Z79.899 Other long term (current) drug therapy; Z79.84 Long term (current) use of oral hypoglycemic drugs; Z90.710 Acquired absence of both cervix and uterus; Z90.49 Acquired absence of other specified parts of digestive tract; Z98.890 Other specified postprocedural states
CPT/HCPCS: 36561; 76937; 77001; 82962; 87635; C1788; C1894; J0330; J1100; J1642; J2405; J2704; J3010; J3370; J7120; J0690; J2710

== ENCOUNTER 2020-06-04 10:42 | Inpatient (IN) | payer MEDICARE, OTHER, MEDICAID ==
[~2020-06-04] VITALS: Ht 152.4 cm; Wt 73.2 kg
[2020-06-04] MEDS ORDERED: SODIUM CHLORIDE FLUSH 10ML SYR IVF ONE (11:30)
--- NOTE | 2020-06-04 11:52 | NUR ---
Pt updated to plan of care, including needed BC x1 from lab.
[2020-06-04 11:53] LABS: MEAN CORPUSCULAR HEMOGLOBIN 31.7 pg (27.0-34.8); MEAN CORPUSCULAR HGB CONC 34.6 g/dL (32.4-35.8); RED CELL DISTRIBUTION WIDTH 12.7 % (9.6-15.2)
[2020-06-04 12:00] LABS: ALANINE AMINOTRANSFERASE 11 U/L (12-78); ALBUMIN 3.4 g/dL (3.4-5.0); ANION GAP 8 mmol/L (5-15); CALCIUM 9.9 mg/dL (8.5-10.1); CHLORIDE 103 mmol/L (98-107); CREATININE 0.89 mg/dL (0.55-1.02)
[2020-06-04 12:01] LABS: INTERNATIONAL NORMALIZED RATIO 1.01 (0.93-1.1); PROTHROMBIN TIME 10.7 Seconds (9.6-11.5)
[2020-06-04 12:04] LABS: ALKALINE PHOSPHATASE 96 U/L (45-117); BILIRUBIN,TOTAL 0.4 mg/dL (0.2-1.0); TOTAL PROTEIN 8.2 g/dL (6.4-8.2); TROPONIN I < 0.015 ng/mL (0.000-0.045)
--- NOTE | 2020-06-04 12:06 | NUR ---
Lab at bedside for BC x1.
[2020-06-04 12:32] LABS: MD YES; PLATELET COUNT 9 x10^3/uL (130-400)
[2020-06-04 12:44] LABS: LYMPH#(MANUAL) 0.94 x10^3/uL (1-3.4); LYMPHS% (MANUAL) 39 % (22-44); MONOS#(MANUAL) 0.22 x10^3/uL (0.3-2.7); MONOS% (MANUAL) 9 % (2-9); SEG#(MANUAL) 1.22 x10^3/uL (1.8-6.8); SEGS% (MANUAL) 51 % (42-75)
[2020-06-04 12:45] LABS: OTHER CELLS # (MANUAL) 0.02 x10^3/uL (0-0); OTHER CELLS % (MANUAL) 1 % (0-0)
[2020-06-04 12:46] LABS: <PLATELET ESTIMATE> DECREASED; <PLT MORPHOLOGY> NORMAL PLT MORPH; <RBC MORPHOLOGY> NORMAL
[2020-06-04] MEDS ORDERED: HYDROmorphone 1 MG/ML, 1ML INJ ONE (13:38)
[2020-06-04] MEDS ORDERED: OMNIPAQUE 350 MG/ML, 75ML BOTTLE ONE (13:45)
[2020-06-04 13:53] VITALS: BP 116/45
--- NOTE | 2020-06-04 14:09 | NUR ---
Pt states minimal pain relief after IV pain medical i d sales reassessment. Pain in chest has decreased to 8/10 from 9/.10. Platelets infusing without s/s reaction at this time.
[2020-06-04 14:11] VITALS: BP 119/55
[2020-06-04] MEDS ORDERED: HYDROmorphone 1 MG/ML, 1ML INJ IV ONE (14:30)
[2020-06-04] MEDS ORDERED: ONDANSETRON 2MG/ML, 2ML IVPush ONE (14:30)
[2020-06-04] MEDS ORDERED: ACETAMINOPHEN 325 MG TABLET PO PRN (15:00)
[2020-06-04] MEDS ORDERED: GUAIFENESIN/COD200MG-20MG/10ML LIQUID PO PRN (15:00)
[2020-06-04] MEDS ORDERED: ONDANSETRON 2MG/ML, 2ML IVPush PRN (15:00)
[2020-06-04] MEDS ORDERED: DOCUSATE 100 MG CAPSULE PO PRN (15:00)
[2020-06-04] MEDS ORDERED: ENALAPRILAT 1.25 MG/ML, 2ML IVPush PRN (15:00)
--- NOTE | 2020-06-04 15:00 | NUR ---
Report called to BELÉN Henderson for room 433 and pt marked as ready for transfer.
--- NOTE | 2020-06-04 15:05 | NUR ---
Pt report given to BELÉN Miles and care tranferred while awaiting transfer to floor.
[2020-06-04 15:35] VITALS: BP 145/66
[2020-06-04] MEDS ORDERED: ONDANSETRON 2MG/ML, 2ML ONE (15:47)
[2020-06-04] MEDS ORDERED: POTASSIUM CHLORIDE 20 MEQ in LACTATED RINGERS 1,000 ML IV SCH (16:30)
[2020-06-04] MEDS ORDERED: DIPHENHYDRAMINE 25 MG CAPSULE PO PRN ×2 (17:00→17:30)
[2020-06-04] MEDS: INSULIN REGULAR 100 UNITS/ML, 3ML VIAL SQ-INSULIN SCH ×2 (17:00→23:00)
[2020-06-04] MEDS ORDERED: ACETAMINOPHEN 500 MG TABLET PO PRN ×2 (17:00→17:28)
[2020-06-04] MEDS: D5%-LR+KCL 20MEQ 1,000 ML IV SCH (18:06)
[2020-06-04 18:29] VITALS: BP 120/51
[2020-06-04 19:29] VITALS: BP 107/67
[2020-06-04] MEDS: INSULIN GLARGINE 100 UNITS/ML, PEN SQ-INSULIN SCH (21:00)
[2020-06-04] MEDS: BACLOFEN 10 MG TABLET PO SCH (23:24)
[2020-06-04] MEDS: GABAPENTIN 300 MG CAPSULE PO SCH (23:24)
[2020-06-04] MEDS ORDERED: MORPHINE SULFATE 4 MG/ML, 1ML ONE (23:32)
[2020-06-04] MEDS: morphine SULFATE 10 MG/ML, 1ML IVPush PRN (23:35)
[2020-06-05] VITALS (7 sets, daily range): BP systolic 100–124; BP diastolic 45–74
[2020-06-05] MEDS: ESOMEPRAZOLE 40 MG IV IVPush SCH ×2 (01:00→14:05)
[2020-06-05] MEDS: D5%-LR+KCL 20MEQ 1,000 ML IV SCH ×2 (03:38→15:29)
[2020-06-05] MEDS: INSULIN REGULAR 100 UNITS/ML, 3ML VIAL SQ-INSULIN SCH ×4 (05:00→22:51)
[2020-06-05 06:13] LABS: MEAN CORPUSCULAR HEMOGLOBIN 31.7 pg (27.0-34.8); MEAN PLATELET VOLUME 8.9 fL (7.4-10.4); RED BLOOD COUNT 2.67 x10^6/uL (3.82-5.3); RED CELL DISTRIBUTION WIDTH 12.7 % (9.6-15.2)
[2020-06-05 06:19] LABS: ANION GAP 4 mmol/L (5-15); CALCIUM 9.1 mg/dL (8.5-10.1); CHLORIDE 109 mmol/L (98-107); CREATININE 0.58 mg/dL (0.55-1.02)
[2020-06-05 06:41] LABS: PLATELET COUNT 38 x10^3/uL (130-400)
[2020-06-05 06:54] LABS: MD YES
[2020-06-05 06:55] LABS: SEG#(MANUAL) 0.81 x10^3/uL (1.8-6.8); SEGS% (MANUAL) 45 % (42-75)
[2020-06-05 06:56] LABS: LYMPH#(MANUAL) 0.74 x10^3/uL (1-3.4); LYMPHS% (MANUAL) 41 % (22-44); MONOS#(MANUAL) 0.25 x10^3/uL (0.3-2.7); MONOS% (MANUAL) 14 % (2-9)
[2020-06-05 06:57] LABS: <PLATELET ESTIMATE> DECREASED; <PLT MORPHOLOGY> NORMAL PLT MORPH; <RBC MORPHOLOGY> NORMAL
[2020-06-05] MEDS: BACLOFEN 10 MG TABLET PO SCH ×4 (07:17→22:42)
[2020-06-05] MEDS: GABAPENTIN 300 MG CAPSULE PO SCH ×4 (07:17→22:43)
[2020-06-05] MEDS ORDERED: TBO-FILGRASTIM 480 MCG/0.8 ML SQ ONE (10:00)
[2020-06-05] MEDS ORDERED: maalox/diphenh/lido/sucralfate 5 ML PO PRN (10:00)
[2020-06-05] MEDS: FENOFIBRATE 145 MG TABLET PO SCH (10:15)
[2020-06-05] MEDS: DULOXETINE 30 MG CAPSULE.DR PO SCH (10:15)
[2020-06-05] MEDS: OXYcodone/APAP 10/325MG TABLET PO PRN (16:48)
[2020-06-05] MEDS: INSULIN GLARGINE 100 UNITS/ML, PEN SQ-INSULIN SCH (21:00)
[2020-06-05] MEDS: morphine SULFATE 10 MG/ML, 1ML IVPush PRN (22:42)
[2020-06-05 23:07] LABS: MICROSCOPIC INDICATED
[2020-06-06] MEDS: ESOMEPRAZOLE 40 MG IV IVPush SCH (01:00)
[2020-06-06 02:04] VITALS: BP 94/57
[2020-06-06] MEDS: INSULIN REGULAR 100 UNITS/ML, 3ML VIAL SQ-INSULIN SCH ×2 (05:00→11:09)
[2020-06-06 05:27] LABS: MEAN CORPUSCULAR HEMOGLOBIN 31.9 pg (27.0-34.8); MEAN CORPUSCULAR HGB CONC 34.8 g/dL (32.4-35.8); MEAN PLATELET VOLUME 8.3 fL (7.4-10.4); PLATELET COUNT 54 x10^3/uL (130-400); RED BLOOD COUNT 2.59 x10^6/uL (3.82-5.3); RED CELL DISTRIBUTION WIDTH 12.9 % (9.6-15.2)
[2020-06-06 05:36] LABS: ANION GAP 3 mmol/L (5-15); CALCIUM 9.1 mg/dL (8.5-10.1); CHLORIDE 112 mmol/L (98-107); CREATININE 0.66 mg/dL (0.55-1.02)
[2020-06-06] MEDS: GABAPENTIN 300 MG CAPSULE PO SCH ×3 (05:44→15:37)
[2020-06-06] MEDS: BACLOFEN 10 MG TABLET PO SCH ×3 (05:44→15:37)
[2020-06-06] MEDS: D5%-LR+KCL 20MEQ 1,000 ML IV SCH ×2 (05:45→15:16)
[2020-06-06] MEDS: OXYcodone/APAP 10/325MG TABLET PO PRN ×2 (05:54→15:42)
[2020-06-06 06:06] LABS: MD YES
[2020-06-06 06:08] LABS: BAND#(MANUAL) 1.08 x10^3/uL; BANDS%(MANUAL) 19 % (0-7); LYMPH#(MANUAL) 0.68 x10^3/uL (1-3.4); LYMPHS% (MANUAL) 12 % (22-44); METAMYELOCYTES# (MANUAL) 0.06 x10^3/uL (0-0); METAMYELOCYTES% (MANUAL) 1 % (0-1); MONOS#(MANUAL) 0.29 x10^3/uL (0.3-2.7); MONOS% (MANUAL) 5 % (2-9); MYELOCYTES# (MANUAL) 0.06 x10^3/uL (0-0); MYELOCYTES% (MANUAL) 1 % (0-0); SEG#(MANUAL) 3.53 x10^3/uL (1.8-6.8); SEGS% (MANUAL) 62 % (42-75)
[2020-06-06 06:09] LABS: <PLATELET ESTIMATE> DECREASED; <PLT MORPHOLOGY> NORMAL PLT MORPH; <RBC MORPHOLOGY> NORMAL
[2020-06-06 07:30] VITALS: BP 96/59
[2020-06-06] MEDS: FENOFIBRATE 145 MG TABLET PO SCH (08:12)
[2020-06-06] MEDS: morphine SULFATE 10 MG/ML, 1ML IVPush PRN (08:19)
[2020-06-06] MEDS: DULOXETINE 30 MG CAPSULE.DR PO SCH (08:33)
[2020-06-06] MEDS ORDERED: SULFAMETH./TRIMETHOPRIM DS 800MG/160MG TABLET PO SCH (09:00)
[2020-06-06 13:11] VITALS: BP 115/73
[2020-06-06] MEDS ORDERED: SULF1TAB24 PO (14:25)
[2020-06-06] MEDS ORDERED: PANT40TA6 PO (14:26)
[2020-06-06] MEDS ORDERED: DULOXETINE 30 MG CAPSULE.DR PO SCH (21:00)
[2020-06-08] MEDS ORDERED: (Dulaglutide (Trulicity) 1.5 MG) HOMEINJ SCH (21:00)
== END 2020-06-06 16:40 | disposition home or self-care (01) | DRG 368 ==
LOC: ED 11:39 → EDIP 14:12 → 4NW 15:42 → DCLOUNGE 06-06 16:26
PROVIDERS: ADMIT Hospitalist; ATTEND Internal Medicine
PROC: 30233R1 Transfusion of Nonautologous Platelets into Peripheral Vein, Percutaneous Approach (ICD-10-PCS; principal; 2020-06-04)
DX: K20.81 Other esophagitis with bleeding (principal); D61.810 Antineoplastic chemotherapy induced pancytopenia; C34.90 Malignant neoplasm of unspecified part of unspecified bronchus or lung; S22.070A Wedge compression fracture of T9-T10 vertebra, initial encounter for closed fracture; D61.818 Other pancytopenia; E87.1 Hypo-osmolality and hyponatremia; N39.0 Urinary tract infection, site not specified; E46 Unspecified protein-calorie malnutrition; E11.51 Type 2 diabetes mellitus with diabetic peripheral angiopathy without gangrene; E11.65 Type 2 diabetes mellitus with hyperglycemia; E87.6 Hypokalemia; F12.90 Cannabis use, unspecified, uncomplicated; F17.200 Nicotine dependence, unspecified, uncomplicated; I10 Essential (primary) hypertension; I25.10 Atherosclerotic heart disease of native coronary artery without angina pectoris; J44.9 Chronic obstructive pulmonary disease, unspecified; K20.80 Other esophagitis without bleeding; R04.0 Epistaxis; T45.1X5A Adverse effect of antineoplastic and immunosuppressive drugs, initial encounter; Y84.2 Radiological procedure and radiotherapy as the cause of abnormal reaction of the patient, or of later complication, without mention of misadventure at the time of the procedure; Z82.49 Family history of ischemic heart disease and other diseases of the circulatory system; Z82.5 Family history of asthma and other chronic lower respiratory diseases; Z86.73 Personal history of transient ischemic attack (TIA), and cerebral infarction without residual deficits; Z89.029 Acquired absence of unspecified finger(s); Z90.710 Acquired absence of both cervix and uterus; Z68.31 Body mass index [BMI] 31.0-31.9, adult; Z88.6 Allergy status to analgesic agent; Z88.0 Allergy status to penicillin; Z88.8 Allergy status to other drugs, medicaments and biological substances; Z91.048 Other nonmedicinal substance allergy status
CPT/HCPCS: 36415; 36430; 71275; 80048; 80053; 81001; 82962; 83735; 84100; 84443; 84484; 85018; 85025; 85049; 85610; 85730; 86850; 86900; 87040; 87077; 87086; 87186; 93005; 96374; 96375; 99285; G0378; J1170; J2405; J3480; Q9967; J1447; J2270; J7120; P9035

== ENCOUNTER → 2020-06-04 | Outpatient (CLI) | payer MEDICARE, OTHER, MEDICAID ==
[~2020-06-04] MED LIST changes: -ALEN70TA66 PO; +ALEN70TA77 PO; -CLIN300C8 PO; +CLIN300C9 PO; +[UNRECOGNIZED DRUG - OTHER]
[2020-06-04 10:39] LABS: ALBUMIN 3.6 g/dL (3.4-5.0); ANION GAP 9 mmol/L (5-15); CALCIUM 10.4 mg/dL (8.5-10.1); CHLORIDE 103 mmol/L (98-107)
[2020-06-04 10:43] LABS: ALANINE AMINOTRANSFERASE 11 U/L (12-78); ALKALINE PHOSPHATASE 92 U/L (45-117); BILIRUBIN,TOTAL 0.4 mg/dL (0.2-1.0); CHOL/HDL RATIO 2.6; CHOLESTEROL, TOTAL 133 mg/dL (140-239); CREATININE 0.88 mg/dL (0.55-1.02); HDL CHOL % 39 % (28-40); HDL CHOLESTEROL (DIRECT) 52 mg/dL (40-60); LDL CHOLESTEROL,CALCULATED 30 mg/dL (54-169); LDL/HDL RATIO 0.6 (0.5-3.0); TOTAL PROTEIN 8.2 g/dL (6.4-8.2); TRIGLYCERIDES 254 mg/dL (50-200); VLDL CHOLESTEROL 51 mg/dL (0-25)
== END | disposition home or self-care (01) ==
LOC: LAB 10:06
PROVIDERS: ATTEND Internal Medicine Cardiovascular Disease
DX: E11.65 Type 2 diabetes mellitus with hyperglycemia (principal); E78.2 Mixed hyperlipidemia; I10 Essential (primary) hypertension; E78.1 Pure hyperglyceridemia; E11.40 Type 2 diabetes mellitus with diabetic neuropathy, unspecified
CPT/HCPCS: 36415; 80053; 80061; 83036; 83721

== ENCOUNTER → 2020-06-13 | Outpatient (CLI) | payer MEDICARE, OTHER, MEDICAID ==
[2020-06-13 13:18] LABS: MICROSCOPIC INDICATED
== END | disposition home or self-care (01) ==
LOC: LAB 12:25
PROVIDERS: ATTEND Specialist
DX: Z51.11 Encounter for antineoplastic chemotherapy (principal); C34.32 Malignant neoplasm of lower lobe, left bronchus or lung; D70.1 Agranulocytosis secondary to cancer chemotherapy; G62.2 Polyneuropathy due to other toxic agents; Z79.899 Other long term (current) drug therapy
CPT/HCPCS: 81001; 87077; 87086; 87186

== ENCOUNTER → 2020-07-24 | Outpatient (CLI) | payer MEDICARE, OTHER, MEDICAID ==
[~2020-07-24] MED LIST changes: +OMNIPAQUE 350 MG/ML, 100ML BOTTLE ONE; -OXYC-307 PO; +OXYC-380 PO
[2020-07-24 11:53] LABS: CREATININE 0.85 mg/dL (0.55-1.02)
== END | disposition home or self-care (01) ==
LOC: RAD 10:38
PROVIDERS: ATTEND Specialist
DX: C34.32 Malignant neoplasm of lower lobe, left bronchus or lung (principal); D70.1 Agranulocytosis secondary to cancer chemotherapy; D69.6 Thrombocytopenia, unspecified; M48.54XA Collapsed vertebra, not elsewhere classified, thoracic region, initial encounter for fracture; R91.1 Solitary pulmonary nodule; J92.9 Pleural plaque without asbestos; J84.10 Pulmonary fibrosis, unspecified
CPT/HCPCS: 36415; 71260; 74177; 78306; 82565; A9503; J1642; Q9967

== ENCOUNTER → 2020-08-31 | Outpatient (CLI) | payer MEDICARE, OTHER, MEDICAID ==
[~2020-08-31] MED LIST changes: +CEFD300C37 PO; +GADOTERATE 7.5 MMOL/15ML SYR ONE; -OMNIPAQUE 350 MG/ML, 100ML BOTTLE ONE
== END | disposition home or self-care (01) ==
LOC: RAD 12:23
PROVIDERS: ATTEND Specialist
DX: C79.31 Secondary malignant neoplasm of brain (principal); C34.32 Malignant neoplasm of lower lobe, left bronchus or lung; C79.51 Secondary malignant neoplasm of bone
CPT/HCPCS: 70553; A9575; J1642

== ENCOUNTER 2020-10-08 09:25 | Outpatient (CLI) | payer MEDICARE, OTHER, MEDICAID ==
[~2020-10-08 09:25] MED LIST changes: -GADOTERATE 7.5 MMOL/15ML SYR ONE; +SULF-23 PO; -SULF1TAB24 PO
[2020-10-08 10:06] LABS: BASOPHILS % (AUTO) 1 % (0-1); EOSINOPHILS % (AUTO) 1 % (1-7); LYMPHOCYTES % (AUTO) 31 % (22-44); MEAN CORPUSCULAR HEMOGLOBIN 31.7 pg (27.0-34.8); MEAN CORPUSCULAR HGB CONC 33.3 g/dL (32.4-35.8); MEAN PLATELET VOLUME 9.4 fL (7.4-10.4); MONOCYTES % (AUTO) 9 % (2-9); NEUTROPHILS % (AUTO) 58 % (42-75); PLATELET COUNT 213 x10^3/uL (130-400); RED BLOOD COUNT 4.22 x10^6/uL (3.82-5.3); RED CELL DISTRIBUTION WIDTH 15.8 % (9.6-15.2)
[2020-10-08 10:08] LABS: MD NO
[2020-10-08 10:35] LABS: ALANINE AMINOTRANSFERASE 13 U/L (12-78); ALBUMIN 3.9 g/dL (3.4-5.0); ANION GAP 8 mmol/L (5-15); CALCIUM 9.7 mg/dL (8.5-10.1); CHLORIDE 106 mmol/L (98-107); CHOLESTEROL, TOTAL 108 mg/dL (140-239); CREATININE 0.89 mg/dL (0.55-1.02); TRIGLYCERIDES 200 mg/dL (50-200); VLDL CHOLESTEROL 40 mg/dL (0-25)
[2020-10-08 10:37] LABS: ALKALINE PHOSPHATASE 92 U/L (45-117); BILIRUBIN,TOTAL 0.3 mg/dL (0.2-1.0); CHOL/HDL RATIO 2.2; HDL CHOL % 46 % (28-40); HDL CHOLESTEROL (DIRECT) 50 mg/dL (40-60); LDL CHOLESTEROL,CALCULATED 18 mg/dL (54-169); LDL/HDL RATIO 0.4 (0.5-3.0); TOTAL PROTEIN 8.3 g/dL (6.4-8.2)
== END 2020-10-08 23:59 | disposition home or self-care (01) ==
LOC: LAB 09:25
PROVIDERS: ATTEND Physician Assistant
DX: I10 Essential (primary) hypertension (principal); E11.40 Type 2 diabetes mellitus with diabetic neuropathy, unspecified; E78.1 Pure hyperglyceridemia; R39.89 Other symptoms and signs involving the genitourinary system; N39.0 Urinary tract infection, site not specified
CPT/HCPCS: 36415; 80053; 80061; 85025; 87077; 87086; 87186

== ENCOUNTER 2020-10-19 15:39 | Emergency (ER) | payer MEDICARE, OTHER, MEDICAID ==
[~2020-10-19] VITALS: Ht 149.9 cm; Wt 70.6 kg
[~2020-10-19 15:39] MED LIST changes: -OMNIPAQUE 350 MG/ML, 100ML BOTTLE ONE
--- NOTE | 2020-10-19 18:24 | NUR ---
PT PRESENTS TO ED WITH C/O LEFT EYE SWELLING AND BLURRED VISION X2 DAYS, DENIES TRAUMA. PT A&O, REPSS EVEN AND UNLABORED, NADN. REPORT GIVEN TO BELÉN HERNANDEZ AT BEDSIDE WHO IS ASSUMING CARE.
--- NOTE | 2020-10-19 18:54 | NUR ---
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 PT ABLE TO WRITE DOWN TO ANSWER QUESTIONS. ATTEMPTED VISUAL ACUITY AND PT ABLE TO READ LAST LINE WHEN IT IS RIGHT INFRONT OF HER WITH BOTH EYES BUT STATES UNABLE TO READ ANYTHING WITH EITHER EYE INDIVIDUALY.
--- NOTE | 2020-10-19 19:09 | NUR ---
THIS RN ASSISTED WITH ASSESSMENT AND CLINICAL SCREEN, PT COMMUNICATING BY WRITING AND WHISPERING. PT NOTES SHE FINISHED RADIATION FOR BRAIN CANCER 3 DAYS AGO, THEN TWO DAYS AGO BEGAN TO HAVE BILATERAL BLURRED VISION WITH LEFT PERIORBITAL EDEMA. PT UNABLE TO READ ANY OF EYE CHART USING BILATERAL OR SINGULAR GAZE, CARMINA GRAY NOTIFIED. PT NOTES SHE HAS HAD MIDLINE LOWER ABD PAIN, WITH NAUSEA AND VOMITING THAT HAS PERSISTED THROUGHOUT RADIATION BUT WORSE IN LAST FEW DAYS. PT IS A&OX4, NEUROLOGICALLY INTACT. BP AND SPO2 MONITORS IN PLACE. CALL LIGHT IN REACH. BELÉN HERNANDEZ GIVEN UPDATED REPORT.
--- NOTE | 2020-10-19 19:30 | NUR ---
PT ABLE TO STEADILY AMBULATE TO RESTROOM, LAB AT BEDSIDE AT THIS TIME
--- NOTE | 2020-10-19 19:37 | NUR ---
MARION (DAUGHTER)- [phone] (OK TO GIVE INFOR PER PT)
[2020-10-19 19:42] LABS: BASOPHILS % (AUTO) 1 % (0-1); EOSINOPHILS % (AUTO) 1 % (1-7); LYMPHOCYTES % (AUTO) 22 % (22-44); MEAN CORPUSCULAR HEMOGLOBIN 31.5 pg (27.0-34.8); MEAN CORPUSCULAR HGB CONC 33.1 g/dL (32.4-35.8); MEAN PLATELET VOLUME 8.8 fL (7.4-10.4); MONOCYTES % (AUTO) 10 % (2-9); NEUTROPHILS % (AUTO) 66 % (42-75); PLATELET COUNT 170 x10^3/uL (130-400); RED BLOOD COUNT 3.91 x10^6/uL (3.82-5.3); RED CELL DISTRIBUTION WIDTH 15.7 % (9.6-15.2)
[2020-10-19 19:44] LABS: MD NO
[2020-10-19 19:49] LABS: ALBUMIN 3.9 g/dL (3.4-5.0); ANION GAP 6 mmol/L (5-15); CALCIUM 9.5 mg/dL (8.5-10.1); CHLORIDE 104 mmol/L (98-107)
[2020-10-19 19:54] LABS: ALANINE AMINOTRANSFERASE 10 U/L (12-78); ALKALINE PHOSPHATASE 73 U/L (45-117); BILIRUBIN,TOTAL 0.2 mg/dL (0.2-1.0); CREATININE 0.76 mg/dL (0.55-1.02); TOTAL PROTEIN 7.9 g/dL (6.4-8.2)
--- NOTE | 2020-10-19 20:21 | NUR ---
pt to mri
[2020-10-19] MEDS ORDERED: GADOTERATE 10 MMOL/20ML SYR ONE (20:48)
--- NOTE | 2020-10-19 21:10 | NUR ---
pt back from mri, moved to room 22 for comfort on [facility]. pt ambulated to restroom for urine sample
[2020-10-19 21:48] VITALS: BP 114/54
[2020-10-19 21:52] LABS: MICROSCOPIC INDICATED
== END 2020-10-19 22:54 | disposition home or self-care (01) ==
LOC: ED 17:56
DX: H16.8 Other keratitis (principal); N30.00 Acute cystitis without hematuria; I10 Essential (primary) hypertension; K21.9 Gastro-esophageal reflux disease without esophagitis; E78.00 Pure hypercholesterolemia, unspecified; E78.5 Hyperlipidemia, unspecified; I25.10 Atherosclerotic heart disease of native coronary artery without angina pectoris; J44.9 Chronic obstructive pulmonary disease, unspecified; E11.40 Type 2 diabetes mellitus with diabetic neuropathy, unspecified; Z86.718 Personal history of other venous thrombosis and embolism; Z90.49 Acquired absence of other specified parts of digestive tract
CPT/HCPCS: 36415; 70553; 80053; 81001; 85025; 87086; 99284; A9575

== ENCOUNTER → 2020-10-19 | Outpatient (CLI) | payer MEDICARE, OTHER, MEDICAID ==
[~2020-10-19] MED LIST changes: +OMNIPAQUE 350 MG/ML, 100ML BOTTLE ONE
== END | disposition home or self-care (01) ==
LOC: CFH 14:00
PROVIDERS: ATTEND Physician Assistant
DX: R39.89 Other symptoms and signs involving the genitourinary system (principal)
CPT/HCPCS: 74177; Q9967

== ENCOUNTER 2020-11-02 11:00 | Outpatient (CLI) | payer MEDICARE, OTHER, MEDICAID ==
[~2020-11-02 11:00] MED LIST changes: -OMEP40CA42 PO; +OMEP40CA8 PO
[2020-11-02] MEDS ORDERED: OMNIPAQUE 350 MG/ML, 75ML BOTTLE ONE (11:11)
[2020-11-02] MEDS ORDERED: REGADENOSON 0.4 MG/5 ML SYRINGE ONE (15:32)
[2020-11-02] MEDS ORDERED: AMINOPHYLLINE 25 MG/ML, 10ML ONE (15:32)
[2021-01-03] MEDS ORDERED: DEXA1TAB5 PO (12:42)
[2021-01-03] MEDS ORDERED: GABA300C PO (12:42)
== END 2020-11-02 23:59 | disposition home or self-care (01) ==
LOC: CFH 11:00
PROVIDERS: ATTEND Internal Medicine Cardiovascular Disease
DX: C79.51 Secondary malignant neoplasm of bone (principal); C34.90 Malignant neoplasm of unspecified part of unspecified bronchus or lung; J06.9 Acute upper respiratory infection, unspecified; J04.0 Acute laryngitis; E78.2 Mixed hyperlipidemia; I87.8 Other specified disorders of veins; R91.8 Other nonspecific abnormal finding of lung field; J84.10 Pulmonary fibrosis, unspecified; R91.1 Solitary pulmonary nodule; I21.19 ST elevation (STEMI) myocardial infarction involving other coronary artery of inferior wall; E11.65 Type 2 diabetes mellitus with hyperglycemia; A41.9 Sepsis, unspecified organism; I25.84 Coronary atherosclerosis due to calcified coronary lesion; I10 Essential (primary) hypertension; I73.9 Peripheral vascular disease, unspecified; D14.31 Benign neoplasm of right bronchus and lung; D71 Functional disorders of polymorphonuclear neutrophils; Z72.0 Tobacco use; Z79.4 Long term (current) use of insulin
CPT/HCPCS: 71046; 71260; 78452; 93017; A9502; J0280; J2785; Q9967

== ENCOUNTER → 2020-11-28 | Outpatient (CLI) | payer MEDICARE, OTHER, MEDICAID ==
[~2020-11-28] MED LIST changes: +GADOTERATE 7.5 MMOL/15ML SYR ONE; +OMNIPAQUE 350 MG/ML, 100ML BOTTLE ONE
== END | disposition home or self-care (01) ==
LOC: RAD 12:04
PROVIDERS: ATTEND Specialist
DX: C34.32 Malignant neoplasm of lower lobe, left bronchus or lung (principal); C79.51 Secondary malignant neoplasm of bone; M84.48XA Pathological fracture, other site, initial encounter for fracture; R91.8 Other nonspecific abnormal finding of lung field; J84.10 Pulmonary fibrosis, unspecified; J43.9 Emphysema, unspecified; N20.0 Calculus of kidney; G31.9 Degenerative disease of nervous system, unspecified
CPT/HCPCS: 70553; 71260; 74177; A9575; Q9967

== ENCOUNTER 2020-12-18 08:06 | Day surgery (SDC) | payer MEDICARE, OTHER, MEDICAID ==
[~2020-12-18] VITALS: Ht 149.9 cm; Wt 60.0 kg
[~2020-12-18 08:06] MED LIST changes: -GADOTERATE 7.5 MMOL/15ML SYR ONE; -OMNIPAQUE 350 MG/ML, 100ML BOTTLE ONE
[2020-12-18] MEDS ORDERED: INSU100C5 SQ-INSULIN (08:55)
[2020-12-18] MEDS ORDERED: ONDA4TAB7 PO (08:55)
[2020-12-18] MEDS ORDERED: CLOP75TA52 PO (08:55)
[2020-12-18] MEDS ORDERED: DIPH25CA61 PO (08:55)
[2020-12-18] MEDS ORDERED: OMEP-110 PO (08:55)
[2020-12-18] MEDS ORDERED: SODIUM CHLORIDE 0.9% 1,000 ML IV SCH (09:30)
[2020-12-18] MEDS ORDERED: ONDANSETRON 2MG/ML, 2ML ONE (10:22)
[2020-12-18 10:25] LABS: BASOPHILS % (AUTO) 1 % (0-1); EOSINOPHILS % (AUTO) 1 % (1-7); LYMPHOCYTES % (AUTO) 29 % (22-44); MEAN CORPUSCULAR HEMOGLOBIN 32.7 pg (27.0-34.8); MEAN CORPUSCULAR HGB CONC 33.2 g/dL (32.4-35.8); MEAN PLATELET VOLUME 8.5 fL (7.4-10.4); MONOCYTES % (AUTO) 8 % (2-9); NEUTROPHILS % (AUTO) 62 % (42-75); PLATELET COUNT 202 x10^3/uL (130-400); RED CELL DISTRIBUTION WIDTH 16.8 % (9.6-15.2)
[2020-12-18] MEDS ORDERED: ONDANSETRON 2MG/ML, 2ML IVPush ONE (10:30)
[2020-12-18 10:34] LABS: ALANINE AMINOTRANSFERASE 11 U/L (12-78); ALBUMIN 3.6 g/dL (3.4-5.0); ANION GAP 3 mmol/L (5-15); CALCIUM 9.5 mg/dL (8.5-10.1); CHLORIDE 106 mmol/L (98-107); CREATININE 0.69 mg/dL (0.55-1.02)
[2020-12-18 10:35] LABS: INTERNATIONAL NORMALIZED RATIO 1.06 (0.93-1.1); PROTHROMBIN TIME 11.3 Seconds (9.6-11.5)
[2020-12-18 10:36] LABS: ALKALINE PHOSPHATASE 49 U/L (45-117); BILIRUBIN,TOTAL 0.4 mg/dL (0.2-1.0)
[2020-12-18] MEDS ORDERED: FENTANYL PF 100 MCG/2ML ONE (11:45)
[2020-12-18] MEDS ORDERED: HEPARIN 1,000 UNITS/ML, 10ML ONE (11:45)
[2020-12-18] MEDS ORDERED: VERAPAMIL 2.5 MG/ML, 2ML ONE (11:45)
[2020-12-18] MEDS ORDERED: LIDOCAINE-MPF 1%, 5ML ONE (11:45)
[2020-12-18] MEDS ORDERED: MIDAZOLAM 1 MG/ML, 2ML ONE (11:45)
[2020-12-18] MEDS ORDERED: BUPIVACAINE 0.25% ONE (11:55)
== END 2020-12-18 14:55 | disposition home or self-care (01) ==
LOC: CACL 08:06
PROVIDERS: ATTEND Internal Medicine Cardiovascular Disease
DX: R94.39 Abnormal result of other cardiovascular function study (principal); I25.118 Atherosclerotic heart disease of native coronary artery with other forms of angina pectoris; I25.83 Coronary atherosclerosis due to lipid rich plaque; I25.82 Chronic total occlusion of coronary artery; I10 Essential (primary) hypertension; E11.9 Type 2 diabetes mellitus without complications; E78.2 Mixed hyperlipidemia; Z79.01 Long term (current) use of anticoagulants; Z79.899 Other long term (current) drug therapy
CPT/HCPCS: 36415; 80053; 85025; 85610; 85730; 93454; 99156; C1769; C1894; J1644; J2250; J2405; J3010; Q9967

== ENCOUNTER 2021-01-24 08:58 | Outpatient (CLI) | payer MEDICARE, OTHER ==
[~2021-01-24 08:58] MED LIST changes: +DEXA1TAB5 PO; +GABA300C PO; +INSU100C5 SQ-INSULIN; +OMEP-110 PO; +ONDA4TAB7 PO
== END 2021-01-24 23:59 | disposition home or self-care (01) ==
LOC: PETCFH 08:58
PROVIDERS: ATTEND Specialist
DX: C34.32 Malignant neoplasm of lower lobe, left bronchus or lung (principal); C79.51 Secondary malignant neoplasm of bone; I25.10 Atherosclerotic heart disease of native coronary artery without angina pectoris; R91.1 Solitary pulmonary nodule; J98.4 Other disorders of lung; K57.30 Diverticulosis of large intestine without perforation or abscess without bleeding; J84.10 Pulmonary fibrosis, unspecified
CPT/HCPCS: 78815; A9552

== ENCOUNTER 2021-02-15 14:37 | Outpatient (CLI) | payer MEDICARE, OTHER, MEDICAID ==
[~2021-02-15 14:37] MED LIST changes: -OXYC-380 PO; +OXYC-501 PO
[2021-02-15] MEDS ORDERED: BACL-19 PO (15:55)
[2021-02-15] MEDS ORDERED: PANT40TA6 PO (15:55)
[2021-02-15] MEDS ORDERED: LISI-167 PO (15:55)
[2021-02-15 16:15] LABS: BASOPHILS % (AUTO) 1 % (0-1); EOSINOPHILS % (AUTO) 0 % (1-7); LYMPHOCYTES % (AUTO) 21 % (22-44); MEAN CORPUSCULAR HEMOGLOBIN 33.2 pg (27.0-34.8); MEAN CORPUSCULAR HGB CONC 33.6 g/dL (32.4-35.8); MONOCYTES % (AUTO) 5 % (2-9); NEUTROPHILS % (AUTO) 72 % (42-75); PLATELET COUNT 235 x10^3/uL (130-400); RED BLOOD COUNT 3.27 x10^6/uL (3.82-5.3)
[2021-02-15 16:27] LABS: ALANINE AMINOTRANSFERASE 12 U/L (12-78); ALBUMIN 3.1 g/dL (3.4-5.0); ANION GAP 4 mmol/L (5-15); CALCIUM 8.6 mg/dL (8.5-10.1); CHLORIDE 105 mmol/L (98-107); INTERNATIONAL NORMALIZED RATIO 0.99 (0.93-1.1); PROTHROMBIN TIME 10.6 Seconds (9.6-11.5)
[2021-02-15 16:30] LABS: ALKALINE PHOSPHATASE 62 U/L (45-117); BILIRUBIN,TOTAL 0.2 mg/dL (0.2-1.0); CREATININE 0.68 mg/dL (0.55-1.02)
[2021-02-15 16:49] LABS: MICROSCOPIC INDICATED
[2021-02-20] MEDS ORDERED: FENTANYL PF 100 MCG/2ML ONE (16:03)
[2021-02-20] MEDS ORDERED: ONDANSETRON 2MG/ML, 2ML ONE (16:46)
[2021-02-20] MEDS ORDERED: EPHEDRINE 50 MG/ML, 1ML ONE (16:46)
[2021-02-20] MEDS ORDERED: GENTAMICIN 80 MG/2 ML ONE (16:46)
[2021-02-20] MEDS ORDERED: SUCCINYLCHOLINE 20 MG/ML, 10ML ONE (16:46)
[2021-02-20] MEDS ORDERED: PROPOFOL 10 MG/ML, 20ML ONE (16:46)
[2021-02-20] MEDS ORDERED: CEFAZOLIN 1,000 MG ONE (16:46)
== END 2021-02-15 23:59 | disposition home or self-care (01) ==
LOC: STAR 14:37
PROVIDERS: ATTEND Urology
DX: Z01.812 Encounter for preprocedural laboratory examination (principal); Z20.822 Contact with and (suspected) exposure to COVID-19; R39.89 Other symptoms and signs involving the genitourinary system; R94.31 Abnormal electrocardiogram [ECG] [EKG]
CPT/HCPCS: 36415; 80053; 81001; 85025; 85610; 87077; 87086; 87186; 87635; 93005

== ENCOUNTER 2021-02-20 14:57 | Day surgery (SDC) | payer MEDICARE, OTHER, MEDICAID ==
[~2021-02-20] VITALS: Ht 147.3 cm; Wt 65.0 kg
[~2021-02-20 14:57] MED LIST changes: +BACL-19 PO; +LISI-167 PO
[2021-02-20 15:39] VITALS: BP 112/68
[2021-02-20] MEDS ORDERED: OMNIPAQUE 350 MG/ML, 50 ML BOTTLE ONE (15:55)
[2021-02-20] MEDS ORDERED: MEPERIDINE/PF 25MG/0.5ML IVPush PRN (16:00)
[2021-02-20] MEDS ORDERED: ONDANSETRON 2MG/ML, 2ML IVPush PRN (16:00)
[2021-02-20] MEDS ORDERED: OXYcodone 5 MG/5 ML ORAL.SOL UDC PO PRN (16:00)
[2021-02-20] MEDS ORDERED: EPHEDRINE 50 MG/ML, 1ML IVPush PRN (16:00)
[2021-02-20] MEDS ORDERED: ACETAMINOPHEN 325 MG TABLET PO PRN (16:00)
[2021-02-20] MEDS ORDERED: LABETALOL 5MG/ML, 20ML IV PRN (16:00)
[2021-02-20] MEDS ORDERED: PROMETHAZINE 25 MG/ML, 1ML IVPush PRN (16:00)
[2021-02-20] MEDS ORDERED: HYDROmorphone 1 MG/ML, 1ML INJ IVPush PRN (16:00)
[2021-02-20] MEDS ORDERED: CHLORHEXIDINE 15 ML UDC PO ONE (16:00)
[2021-02-20] MEDS ORDERED: hydrALAzine 20 MG/ML, 1ML IV PRN (16:00)
[2021-02-20] MEDS ORDERED: LACTATED RINGERS 1,000 ML IV SCH (16:00)
[2021-02-20] MEDS ORDERED: FENTANYL PF 100 MCG/2ML ONE (17:21)
[2021-02-20] MEDS ORDERED: ONDANSETRON 2MG/ML, 2ML ONE (17:21)
[2021-02-20] MEDS: FENTANYL PF 100 MCG/2ML IV PRN ×2 (17:26→17:36)
== END 2021-02-20 19:45 | disposition home or self-care (01) ==
LOC: OR 14:57
PROVIDERS: ATTEND Urology
DX: R39.89 Other symptoms and signs involving the genitourinary system (principal); N32.89 Other specified disorders of bladder; N39.0 Urinary tract infection, site not specified; E11.9 Type 2 diabetes mellitus without complications; E78.5 Hyperlipidemia, unspecified; J44.9 Chronic obstructive pulmonary disease, unspecified; F17.210 Nicotine dependence, cigarettes, uncomplicated; Z88.8 Allergy status to other drugs, medicaments and biological substances; Z88.0 Allergy status to penicillin; Z88.1 Allergy status to other antibiotic agents; Z91.040 Latex allergy status; Z91.018 Allergy to other foods; Z79.899 Other long term (current) drug therapy; Z85.118 Personal history of other malignant neoplasm of bronchus and lung
CPT/HCPCS: 52005; 52204; 74420; 82962; 88305; C1758; J2405; J3010; J7120; Q9967